=== PATIENT | male | born 1970 | race Caucasian/White ===

== ENCOUNTER 2022-06-26 17:06 | Emergency (ER) | payer MEDICAID, SELFPAY ==
[2022-06-26 17:07] VITALS: BP 139/97; PULSE 67; RESP 16; TEMP 36.6; O2SAT 98; BMI 29.9
--- NOTE | 2022-06-26 18:38 | EKG12_ITS ---
Test Reason : DYSRHYTHMIA Blood Pressure : / mmHG Vent. Rate : 056 BPM Atrial Rate : 056 BPM P-R Int : 106 ms QRS Dur : 092 ms QT Int : 430 ms P-R-T Axes : 048 032 035 degrees QTc Int : 414 ms Sinus bradycardia with short [place] Otherwise normal ECG Confirmed by VICTORINA GRAFF, [facility] ([id number]), acquisition editor CHRISTEL HORVATH ([id number]) on 06/27/2022 1:40:33 PM Referred By: TANYA Confirmed By:RANDY PRAJAPATI MD
--- NOTE | 2022-06-26 18:43 | EDS_ITS ---
HPI History of Present Illness Chief Complaint: General Illness Informant: patient and spouse/S.O. Onset/Context/Timing Onset: Weeks Narrative Narrative: Patient present secondary to just not feeling well. Patient has been ill for the last several months. He was diagnosed with rheumatoid arthritis. He states that a recent urgent care visit he was tested for hepatitis B and was notified last week that he tested positive. He moved from his prior home in [facility] to the [facility] [place] because of better medical care. He does not have a physician in this area. He reportedly was at [facility] emergency room over the weekend. He was told that his CAT scan showed an enlarged stomach and liver, but no other acute findings. He presents the emergency room today just because he does not feel well in general. He did start taking prednisone twice daily about a week ago and that was prescribed from an urgent care. [facility] Medical History Anxiety Hepatitis B Rheumatoid arthritis Home Medications oxycodone 5 mg tablet 5 mg PO Q6H PRN pain 3 days #10 tabs 06/26/22 [Rx Last Taken Unknown] prednisone 20 mg tablet 20 mg PO BID 06/26/22 [History Last Taken Unknown] Allergy/AdvReac Type Severity Reaction Status Date / Time No Known Allergies Allergy Verified 06/26/22 17:09 Surgical History H/O hernia repair H/O lithotripsy Social History Smoking Status: Current every day smoker tobacco type: cigarettes ROS ROS ED Constitutional Constitutional ED: Denies chills or fever(s) Eyes Eyes: Denies change in vision or discharge from eye(s) ENT ENT ED: Denies discharge from eye(s), rhinorrhea or sore throat Cardiovascular Cardiovascular: Reports chest pain; Denies palpitations Respiratory/Chest Respiratory/Chest: Denies cough or dyspnea Gastrointestinal Gastrointestinal: Reports abdominal pain; Denies nausea or vomiting Genitourinary Genitourinary ED: Denies dysuria Musculoskeletal Musculoskeletal: Reports myalgias; Denies back pain or extremity pain Integumentary Denies Abrasions or rash Neurologic Neurologic: Reports weakness; Denies headache(s) Psychiatric Psychiatric: Denies anxiety or depression Allergic/Immunologic Allergic/Immunologic ED: Denies lip swelling or urticaria EXAM Physical Exam Const Vital Signs: 06/26/22 17:07 06/26/22 19:07 06/26/22 20:11 Temperature 97.8 F Temperature Source Temporal Pulse Rate 67 53 L 49 L Respiratory Rate 16 12 11 L Blood Pressure 139/97 H 126/88 H 120/71 Blood Pressure Mean 111 100 87 Pulse Ox 98 97 98 Oxygen Delivery Method Room Air Room Air Room Air Positive well nourished and well developed General Appearance ED: well developed HEENT Reports normocephalic and head/scalp atraumatic Eyes PERRL and EOMs intact bilaterally Neck supple Chest Wall inspection of chest normal and palpation of chest normal Resp normal respiratory effort and clear to auscultation bilaterally Cardio regular rate and regular rhythm GI GI Narrative: Mild abdominal tenderness diffusely. No guarding or rebound. Hypoactive but present bowel sounds noted. Palpation: soft Back/Spine no CVA tenderness Extremity normal to inspection Neuro oriented x3 and no sensory deficits noted Sensorium / Orientation: alert Motor Exam: strength 5/5 throughout Psych mental status grossly normal Skin no rashes or lesions noted MDM MDM MDM Narrative Medical decision making narrative: Patient given IV fluids and Toradol. Lab work obtained. I attempted to review the CT scan from [facility], however it is not available on [employer]. Lab Data Attestation: I reviewed the patient's lab results. Labs: Laboratory Results - last 24 hr 06/26/22 06/26/22 06/26/22 18:50 18:50 18:50 WBC 21.6 H RBC 5.53 Hgb 14.1 Hct 44.0 MCV 79.6 L MCH 25.5 L MCHC 32.0 RDW Std Deviation 53.1 H RDW Coeff of Becca 19.1 H Plt Count 370 MPV 9.2 Neut % (Auto) Not Reportable Absolute Neuts (auto) 18.8 H Absolute Lymphs (auto) 1.95 Total Counted 100 Neutrophils % (Manual) 83 H Band Neutrophils % 2 Lymphocytes % (Manual) 9 L Monocytes % (Manual) 4 Metamyelocytes % 1 Myelocytes % 1 H Diff Path Review May foll Platelet Estimate ADEQUATE RBC Morphology NORM C+C PT 12.9 INR 1.0 APTT 20.5 L Sodium 137 Potassium 4.1 Chloride 105 Carbon Dioxide 26.0 Anion Gap 6 BUN 18 Creatinine 0.94 Estim Creat Clear Calc 101.25 Est GFR (MDRD) Af Amer 110 Est GFR (MDRD) Non-Af 91 BUN/Creatinine Ratio 19.2 Glucose 158 H Calcium 9.4 Total Bilirubin 0.50 Direct Bilirubin 0.16 AST 7 L ALT 17 Alkaline Phosphatase 59 Total Protein 7.0 Albumin 3.3 Globulin 3.7 Lipase 108 Urine Color Urine Clarity Urine pH Ur Specific [place] Urine Protein Urine Glucose (UA) Urine Ketones Urine Occult Blood Urine Nitrite Urine Bilirubin Urine Urobilinogen Ur Leukocyte Esterase Urine RBC Urine WBC Ur Squamous Epith Cells Urine Bacteria Urine Mucus 06/26/22 19:10 WBC RBC Hgb Hct MCV MCH MCHC RDW Std Deviation RDW Coeff of Becca Plt Count MPV Neut % (Auto) Absolute Neuts (auto) Absolute Lymphs (auto) Total Counted Neutrophils % (Manual) Band Neutrophils % Lymphocytes % (Manual) Monocytes % (Manual) Metamyelocytes % Myelocytes % Diff Path Review Platelet Estimate RBC Morphology PT INR APTT Sodium Potassium Chloride Carbon Dioxide Anion Gap BUN Creatinine Estim Creat Clear Calc Est GFR (MDRD) Af Amer Est GFR (MDRD) Non-Af BUN/Creatinine Ratio Glucose Calcium Total Bilirubin Direct Bilirubin AST ALT Alkaline Phosphatase Total Protein Albumin Globulin Lipase Urine Color Yellow Urine Clarity Clear Urine pH 8.0 Ur Specific [place] 1.015 Urine Protein Negative Urine Glucose (UA) Normal Urine Ketones Negative Urine Occult Blood Negative Urine Nitrite Negative Urine Bilirubin Negative Urine Urobilinogen Normal Ur Leukocyte Esterase Negative Urine RBC 0 SEEN Urine WBC 0 SEEN Ur Squamous Epith Cells 0 SEEN Urine Bacteria 0 SEEN Urine Mucus 0 SEEN Treatment and Re-Evaluation Narrative: CBC was elevated white count at 21.6 with 83% neutrophils. I do feel this is likely secondary to the prednisone that he was recently started on. Coags are unremarkable. Chemistry studies are normal. Glucose is 158. LFTs are normal. Urinalysis reveals no acute abnormalities. On repeat evaluation patient does feel improved after Toradol. Test results are discussed with patient and . He will be referred to local PCP to establish care as well as to rheumatology and GI. I will write him a short course of oxycodone as we are trying to avoid Tylenol or any drugs that may cause more liver problems. Return instructions given. Discharge Plan Triage Chief Complaint: General Illness ED Provider: Aye Mabry Dx/Rx/DC Orders Clinical Impression: Myalgia, Rheumatoid arthritis, Hepatitis B Instructions: ED Hepatitis, Viral (Type B), ED Myalgias, ED Rheumatoid Arthritis Prescriptions: New oxycodone 5 mg tablet 5 mg PO Q6H PRN (Reason: pain) 3 Days Qty: 10 0RF No Action prednisone 20 mg Tablet 20 mg PO BID Rx Instructions: take 3 tablets by mouth for 5 days, then 2 tablets for 10 days Primary Care Provider: Care Physician,No Primary Referrals: Marie Ye MD [Med Staff - Lottery Manager] - As soon as possible Claire Padron MD [Med Staff - Lottery Manager] - As soon as possible Friend,DO Jerry [Med Staff - Active Staff] - As soon as possible Care Physician,No Primary [Primary Care Provider] - Disposition Disposition: Home, Self Care
[2022-06-26 18:58] LABS: Hemoglobin 14.1 g/dL (13.0-16.5); Mean Corpuscular Hgb 25.5 pg (27.0-32.0); Mean Corpuscular Volume 79.6 fL (80-94); Mean Platelet Vol. 9.2 fl (6.2-12.0); POSITIVE COUNT YES; POSITIVE MORPHOLOGY YES; Platelet Count 370 K/mm3 (150-450); RBC Distribution Width CV 19.1 % (11.6-14.6); RBC Distribution Width SD 53.1 fl (35.1-43.9); Red Blood Count 5.53 M/mm3 (4.6-6.2); White Blood Count 21.6 K/mm3 (4.4-11.0)
[2022-06-26 19:04] LABS: Differential Indicated MANUAL DIFF
[2022-06-26 19:07] VITALS: BP 126/88; PULSE 53; RESP 12; O2SAT 97
[2022-06-26] MEDS: Ketorolac 30 MG/ML Syringe IV (19:09)
[2022-06-26] MEDS: 0.9% Normal Saline 1,000 ML 150 ML IV (19:10)
[2022-06-26 19:12] LABS: Partial Thromboplast Time 20.5 Seconds (24.1-36.2); Prothrombin Time (Protime)PT. 12.9 SECONDS (11.7-14.9)
[2022-06-26 19:15] LABS: AST(SGOT) 7 U/L (15-37); Alanine Aminotransfer ALT/SGPT 17 U/L (16-61); Albumin, Serum 3.3 g/dL (3.2-5.0); Alkaline Phosphatase 59 U/L (45-117); Anion Gap 6 (5-15); BUN 18 mg/dL (7-18); BUN/Creat Ratio 19.2 RATIO (10-20); Bilirubin, Direct 0.16 mg/dL (0.00-0.30); Calcium,Total 9.4 mg/dL (8.5-10.1); Chloride 105 mmol/L (98-107); Creatinine, Serum 0.94 mg/dL (0.70-1.30); EST Glomerular Filtration Rate 91 mL/min (>60); Est Glom Filt Rate - Afr Amer 110 mL/min (>60); Estimated Creatinine Clearance 101.25 ml/min; Globulin 3.7 g/dL (2.2-4.2); Glucose 158 mg/dL (74-106); Lipase 108 U/L (73-393); Potassium 4.1 mmol/L (3.5-5.1); Sodium Level 137 mmol/L (136-145)
[2022-06-26 19:18] LABS: Bacteria 0 SEEN /hpf (None Seen); Mucous, Urine 0 SEEN /hpf (<or=2+); Red Blood Cells-Urine 0 SEEN /hpf (0-5); Squamous Epithelial Cells - UA 0 SEEN /hpf (0-5); White Blood Cells 0 SEEN /hpf (0-5)
[2022-06-26 19:19] LABS: Color, Urine Yellow (Yellow); Glucose, Dipstick Normal (Normal); Ketone-Dipstick Negative (Negative); Leukocyte Esterase-Dipstick Negative /ul (Negative); Nitrite-Dipstick Negative (Negative); Occult Blood-Urine Negative /ul (Negative); Protein-Dipstick Negative (Negative); Specific Gravity, Urine 1.015 (1.002-1.030); Urine Bilirubin Dipstick Negative (Negative); Urine Clarity Clear (Clear); Urine Urobilinogen Normal (Normal)
[2022-06-26 19:28] LABS: Metamyelocyte 1 % (0-1); Neutrophil-Band 2 % (0-5); Neutrophil-Segmented 83 % (47-70); Total Cells Counted 100 (MANUAL DIFF)
[2022-06-26 19:29] LABS: Lymphocyte 9 % (19-41); Monocyte 4 % (0-10); Myelocyte 1 % (0-0); Platelet Estimate ADEQUATE (ADEQ); Red Cell Morphology NORM C+C NORMAL (NORM C&C)
[2022-06-26 19:35] LABS: Absolute Lymphocyte Count 1.95 X10^3/uL (0.83-4.51); Absolute Neutrophil Count 18.8 X10^3/uL (2.0-7.7); Lymphocyte # 1.95 X10^3/ul (0.83-4.51); Neutrophil # 18.83 X10^3/uL (2.7-7.7)
[2022-06-26 20:11] VITALS: BP 120/71; PULSE 49; RESP 11; O2SAT 98
[2022-06-28 10:08] LABS: Pathologist Review Reviewed
== END 2022-06-26 21:33 | disposition home or self-care (01) ==
PROVIDERS: Emergency Provider Emergency Medicine; Visit Provider Emergency Medicine
DX: M79.10 Myalgia, unspecified site (principal); M06.9 Rheumatoid arthritis, unspecified; R16.0 Hepatomegaly, not elsewhere classified; B19.10 Unspecified viral hepatitis B without hepatic coma; F17.210 Nicotine dependence, cigarettes, uncomplicated
CPT/HCPCS: 80048; 80076; 81001; 83690; 85025; 85610; 85730; 93005; 99284; J7030; A4216

== ENCOUNTER 2022-07-25 13:14 | Emergency (ER) | payer MEDICAID, SELFPAY ==
[2022-07-25 13:17] VITALS: BP 122/84; PULSE 119; RESP 16; TEMP 36.6; O2SAT 98; BMI 29.9
[2022-07-25 14:34] VITALS: BP 109/69; PULSE 105; RESP 18; O2SAT 98
--- NOTE | 2022-07-25 14:40 | ED.RN ---
Pt. c/o 03/18 chest pain. Chart has not yet been picked up by a Dr. Chest pain RN protocols ordered.
--- NOTE | 2022-07-25 14:53 | CT_ITS ---
ACR Level 3 findings have been noted. An addendum which confirms receipt of the report will follow. HISTORY: Abdominal pain. TECHNIQUE: Helically acquired images were obtained of the abdomen and pelvis after the intravenous administration of 100mL Isovue-370. A radiation dose optimization technique was used for this scan. 441 images. COMPARISON: None. FINDINGS: LOWER CHEST: Trace right pleural effusion with 1.5 cm wedge-shaped peripheral right lower lobe opacity. BOWEL: Bowel including appendix nondilated. No focal inflammatory change observed. PERITONEUM: No significant ascites. LIVER: No enhancing mass. Fatty infiltration, 19 cm in length. GALLBLADDER/BILIARY TREE: Gallbladder present. KIDNEYS: Subcentimeter bilateral cysts. Multiple left renal calculi measuring up to 8 mm. No hydronephrosis. SPLEEN/PANCREAS/ADRENAL GLANDS: Unremarkable. VESSELS: No abdominal aortic aneurysm. Mild aortoiliac calcified plaque. Mild stranding around the right femoral veins with a small linear nonocclusive filling defect in the visualized portion of the superficial femoral vein. Mild stranding around the left femoral vessels. PELVIC ORGANS: Small prostate calcifications. Enlarged external iliac lymph nodes measuring up to 1.2 x 2.2 cm on the left and 1.2 x 2.2 cm on the right. ABDOMINAL WALL: Small fat-containing ventral and left inguinal hernias. BONES: Mild degenerative change. CT/Abdomen/Pelvis W IV Cont ONLY IMPRESSION: Incompletely imaged nonocclusive deep venous thrombosis of the right femoral vein with mild stranding surrounding both femoral veins; recommend bilateral venous ultrasound correlation. Mild bilateral external iliac lymphadenopathy, nonspecific. Trace right pleural effusion with focal peripheral opacity in the right lower lobe, concerning for pulmonary infarct or pneumonia. Recommend follow-up to exclude developing pulmonary nodule. Nonobstructing left renal calculi. Subcentimeter bilateral renal cysts. Hepatic steatosis with hepatomegaly. Electronically Signed: Ivania Murillo MD at 15:54 EST ,
[2022-07-25 14:54] VITALS: TEMP 37.5
--- NOTE | 2022-07-25 14:55 | EDS_ITS ---
HPI History of Present Illness Chief Complaint: Chest Pain Detail of Chief Complaint: Diffuse body pain. Chills. Nausea. Informant: patient and family Onset/Context/Timing Onset: Today and Yesterday Context: Gradual Onset Timing: Continuous Current Severity: Moderate Maximum Severity: Moderate Narrative Narrative: 51-year-old male history of anxiety, hepatitis and rheumatoid arthritis. States last night he was not feeling well and shivering. He decelerate what he thought was an irregular heart rate with chest pain and pain radiating up from his legs through his abdomen into his chest. Nauseated but denies vomiting or diarrhea. Decreased appetite. Denies any dysuria. Denies any documented fever but has had chills. Prior similar symptoms: No Recent Illness/Hospitalization: No PFSH PFSH Medical History Anxiety Hepatitis B Hyponatremia Rheumatoid arthritis Allergy/AdvReac Type Severity Reaction Status Date / Time No Known Allergies Allergy Verified 07/25/22 13:20 Family History Mother Cancer ovarian Grandmother Cancer leukemia Rheumatoid arthritis Surgical History H/O elbow surgery H/O hernia repair H/O lithotripsy Social History Smoking Status: Current every day smoker tobacco type: cigarettes alcohol intake: never substance use type: marijuana ROS ROS ED ROS Narrative Chest pain. Abdominal pain. Chills. Review of Systems ROS Unobtainable: Denies due to encephalopathy Constitutional Constitutional ED: Reports chills; Denies fever(s) Eyes Eyes: Denies blurry vision ENT ENT ED: Denies ear pain Cardiovascular Cardiovascular: Reports chest pain and racing heartbeat; Denies palpitations Respiratory/Chest Respiratory/Chest: Denies cough or dyspnea Gastrointestinal Gastrointestinal: Reports abdominal pain and nausea; Denies constipation, diarrh ea, melena or vomiting Genitourinary Genitourinary ED: Denies dysuria or hematuria Musculoskeletal Musculoskeletal: Denies arthralgias Integumentary Denies abscess Neurologic Neurologic: Denies headache(s) Psychiatric Psychiatric: Denies anxiety Endocrine Endocrinology: Denies cold intolerance Hematologic/Lymphatic Hematologic/Lymphatic: Reports none Allergic/Immunologic Allergic/Immunologic ED: Denies mouth swelling or tongue swelling EXAM Physical Exam Narrative Exam Narrative: 51-year-old male anxious. Vital signs are stable afebrile. He does not look septic or toxic. Initial temperature 97.8 he felt warm repeat temperature 99.5 orally. H EENT exam unremarkable. Moist extremities. Neck nontender no ly mphadenopathy. Lungs clear to auscultation bilaterally. Heart tachycardic rate about 110 no murmur. Chest wall nontender. Abdomen soft, nondistended but diffusely tender. No peritoneal signs. No hernia or mass. No obstruction. Moving all 4 extremities. Trace edema both lower extremities. Swelling to bilateral knees. Back nontender. Multiple tattoos. Neurologically he is awake and alert with no focal motor deficits. Const Vital Signs: 07/25/22 13:17 07/25/22 14:34 07/25/22 14:54 Temperature 97.8 F 99.5 F H Temperature Source Temporal Oral Pulse Rate 119 H 105 H Respiratory Rate 16 18 Blood Pressure 122/84 H 109/69 Blood Pressure Mean 96 82 Pulse Ox 98 98 Oxygen Delivery Method Room Air Room Air 07/25/22 14:56 07/25/22 16:45 Temperature Temperature Source Pulse Rate 99 Respiratory Rate Blood Pressure 152/80 H Blood Pressure Mean 104 Pulse Ox 96 Oxygen Delivery Method Room Air Room Air Positive well nourished, well developed and obese; Negative for cachectic, contractures or unkempt General Appearance ED: well developed and NAD; Negative for unkempt, cachectic, contractures, cyanotic or diaphoretic Nutritional Appearance: obese; Negative for cachectic HEENT Reports moist mucous membranes; Denies dry mucous membranes Negative for trauma or tenderness Mouth ED: No dry mucous membranes Mouth: No dry mucous membranes Eyes PERRL and EOMs intact bilaterally General Eye ED: Negative for pale conjunctiva or scleral icterus Neck no lymphadenopathy, supple and no JVD General: Negative for tenderness Lymph Lymphatic: Negative for other Chest Wall inspection of chest normal and palpation of chest normal Chest: Negative for other Resp normal respiratory effort and clear to auscultation bilaterally Effort and Inspection: Negative for retractions Auscultation: Negative for rales, rhonchi or wheezes Cardio regular rhythm, S1 normal heart sound, S2 normal heart sound and no murmurs; Negative for regular rate Rate: tachycardic Rhythm: Negative for abnormal rhythm GI normal to inspection, nondistended, normoactive bowel sounds, non-distended and no masses; Negative for non-tender Inspection: Negative for abdominal distention Auscultation: normoactive bowel sounds Palpation: soft and tender; Negative for guarding, splenomegaly, mass or rebound tenderness present Back/Spine no CVA tenderness General Back: Negative for CVA tenderness Cervical Spine: Negative for cervical spine tenderness Thoracic Spine / Upper Back: Negative for thoracic spinal tenderness Lumbar Spine / Lower Back: Negative for lumbar spinal tenderness Extremity Negative for normal to inspection Extremity Narrative: Trace bilateral lower extremity edema. Bilateral knee swelling. General Extremety ED: Yes edema and tenderness General Extremity: edema Neuro oriented x3 and CN's II-XII intact bilaterally Sensorium / Orientation: alert; Negative for orientation impaired, lethargic or stuporous Motor Exam: strength 5/5 throughout Psych mental status grossly normal Appearance: Negative for unkempt Attitude: No agitated Mood & Affect: anxious; Negative for depressed or tearful Skin no rashes or lesions noted and no wounds Lesions: No lesion noted Rashes: No rashes noted Trauma: Negative for abrasion Wounds: Negative for wounds noted MDM MDM MDM Narrative Medical decision making narrative: 51-year-old with multiple complaints including diffuse body pain, abdominal pain and chest pain. Initially I do not think this is going to be cardiac. He reportedly has a history of rheumatoid arthritis. He does have trace edema both lower extremities and joint swelling. He also has abdominal pain that is nonlocalizing. Nurses put in protocol labs. Again extensive work-up including a CT of his abdomen and pelvis. Zofran for nausea. Repeat exam at 6:16 PM patient doing well. Resting comfortably. He and his had a long discussion. They just moved there in the last 2 weeks. He is having trouble getting set up with primary care physicians. He has a appointment to be seen at the [facility] as a new patient but that is not until January. He understands there is nothing to admit him to the hospital for. He will be given a dose of IV Toradol for discomfort. I will refer him to a different local primary care physicians to get set up hopefully in and see a public health staff nurse. They have attempted to see the public health staff nurse here in town they do not take his specific insurance. Lab Data Attestation: I reviewed the patient's lab results. Lab results narrative: CBC has an elevated white count of 14.6. H&H 12.6 and 39.1. Platelets are elevated at 789,000. Electrolytes show a gap of 13 and a normal BUN and creatinine. Glucose 134. Liver enzymes are normal. Troponin is normal. Lipase is normal at 75. CT of the abdomen pelvis showed a questionable femoral DVT. However on bilateral, venous studies of the lower extremity showed no DVT. Clinically this does not appear to be a DVT. CTA of the chest showed a very small pleural effusion. Otherwise unremarkable. No PE. Labs are unremarkable no significant change from prior. He has been reportedly on prednisone recently and that could be the elevation of his white count. There is no clinical signs of infection on any of his studies. Labs: Laboratory Results - last 24 hr 07/25/22 07/25/22 07/25/22 14:49 14:49 14:49 WBC 14.6 H RBC 4.98 Hgb 12.6 L Hct 39.1 L MCV 78.5 L MCH 25.3 L MCHC 32.2 RDW Std Deviation 46.8 H RDW Coeff of Becca 16.3 H Plt Count 789 H* MPV 8.8 Immature Gran % (Auto) 1.600 H Neut % (Auto) 80.1 H Lymph % (Auto) 8.6 L [place] % (Auto) 9.2 Eos % (Auto) 0.2 Baso % (Auto) 0.3 Absolute Neuts (auto) 11.7 H Absolute Lymphs (auto) 1.26 Nucleated RBC % 0 Diff Path Review May foll Sodium 133 L Potassium 3.9 Chloride 96 L Carbon Dioxide 27.0 Anion Gap 10 BUN 11 Creatinine 0.78 Estim Creat Clear Calc 122.01 Est GFR (MDRD) Af Amer 136 Est GFR (MDRD) Non-Af 113 BUN/Creatinine Ratio 14.2 Glucose 134 H Calcium 9.3 Total Bilirubin 0.50 Direct Bilirubin 0.23 AST 15 ALT 13 L Alkaline Phosphatase 50 Troponin I High Sens 4 Total Protein 6.8 Albumin 2.4 L Globulin 4.4 H Lipase 07/25/22 14:49 WBC RBC Hgb Hct MCV MCH MCHC RDW Std Deviation RDW Coeff of Becca Plt Count MPV Immature Gran % (Auto) Neut % (Auto) Lymph % (Auto) [place] % (Auto) Eos % (Auto) Baso % (Auto) Absolute Neuts (auto) Absolute Lymphs (auto) Nucleated RBC % Diff Path Review Sodium Potassium Chloride Carbon Dioxide Anion Gap BUN Creatinine Estim Creat Clear Calc Est GFR (MDRD) Af Amer Est GFR (MDRD) Non-Af BUN/Creatinine Ratio Glucose Calcium Total Bilirubin Direct Bilirubin AST ALT Alkaline Phosphatase Troponin I High Sens Total Protein Albumin Globulin Lipase 75 Radiography Chest X-Ray - ED: 1 View, Read by ED Physician, Read by Radiologist, Heart, Lungs, Mediastinum, Bony Structures, No Acute Disease and Chronic Changes Diagnostic Testing: Clinical Impression(s) from Imaging Studies Abdomen/Pelvis CT 07/25/22 14:53 IMPRESSION: Incompletely imaged nonocclusive deep venous thrombosis of the right femoral vein with mild stranding surrounding both femoral veins; recommend bilateral venous ultrasound correlation. Mild bilateral external iliac lymphadenopathy, nonspecific. Trace right pleural effusion with focal peripheral opacity in the right lower lobe, concerning for pulmonary infarct or pneumonia. Recommend follow-up to exclude developing pulmonary nodule. Nonobstructing left renal calculi. Subcentimeter bilateral renal cysts. Hepatic steatosis with hepatomegaly. Electronically Signed: Ivania Murillo MD at 15:54 EST , ADDENDUM: 07/25/22 1608 IMPRESSION: Incompletely imaged nonocclusive deep venous thrombosis of the right femoral vein with mild stranding surrounding both femoral veins; recommend bilateral venous ultrasound correlation. Mild bilateral external iliac lymphadenopathy, nonspecific. Trace right pleural effusion with focal peripheral opacity in the right lower lobe, concerning for pulmonary infarct or pneumonia. Recommend follow-up to exclude developing pulmonary nodule. Nonobstructing left renal calculi. Subcentimeter bilateral renal cysts. Hepatic steatosis with hepatomegaly. N.B. : Hernan Acuña MD, confirmed on 07/25/2022 16:01:10 (ET) that the healthcare facility has received the radiology report. Electronically Signed: Ivania Murillo MD at 15:54 EST , Chest X-Ray 07/25/22 15:30 IMPRESSION: No acute cardiopulmonary process identified. Electronically Signed: Ivania Murillo MD at 15:41 EST , Chest CTA 07/25/22 16:16 IMPRESSION: Tiny right pleural effusion and probable atelectasis in the right lower lobe. No acute infiltration. No evidence for pulmonary embolus Electronically Signed: David West MD at 17:21 EST , Venous Doppler Study 07/25/22 16:17 Interpretation Summary Deep veins of the bilateral lower extremities are patent and compressible segmentally. There is no evidence of bilateral lower extremity deep vein thrombosis. The bilateral great saphenous veins appear patent and compressible segmentally. Ordering Physician: Roldan Jacobs Referring Physician: Reva Cobb Performed By: Lucy Francis RVT Chest x-ray, portable, single view shows no acute abnormality. Normal cardiac silhouette. No infiltrate. No pneumonia. Interpreted myself and radiologist. Rhythm Strip Rhythm Strip: Sinus Tach Rate: 101 Ectopy: None EKG Initial EKG: Attestation: I personally reviewed and interpreted this EKG as follows: Interpretation: Sinus Tachycardia Comments: Sinus tachycardia rate of 101 no acute signs of VA or ischemia. No significant change from prior EKG from June. Discharge Plan Triage Chief Complaint: Chest Pain Other Complaint: Other, Pain/Inj ED Provider: Roldan Jacobs Dx/Rx/DC Orders Instructions: Abdominal Pain, Knee Pain, ED Chest Pain, Uncertain Cause Primary Care Provider: Reva Cobb NP Referrals: Chapin Miller MD [Med Staff - Active Staff] - As soon as possible Mart Blanco MD [Med Staff - Tailings Worker] - As soon as possible Reva Cobb NP, PRODUCTION PACKAGER-[employer] [Primary Care Provider] - Activity Restrictions/Additional Instructions: Call and follow-up with a local primary care physician try different offices they should be able to get you in sooner than January. Also follow-up with the [facility] to see if they can move up your appointment. There are public health staff nurse both in [place] in [place] try to call their office to see if you get in for an evaluation for rheumatoid arthritis versus other causes of your joint pain. Disposition Disposition: Home, Self Care
[2022-07-25 15:05] LABS: Lipase 75 U/L (73-393)
[2022-07-25] MEDS: Ondansetron 4 MG/2 ML Vial IV (15:05)
[2022-07-25 15:12] LABS: Anion Gap 10 (5-15); BUN 11 mg/dL (7-18); BUN/Creat Ratio 14.2 RATIO (10-20); Calcium,Total 9.3 mg/dL (8.5-10.1); Chloride 96 mmol/L (98-107); Creatinine, Serum 0.78 mg/dL (0.70-1.30); EST Glomerular Filtration Rate 113 mL/min (>60); Est Glom Filt Rate - Afr Amer 136 mL/min (>60); Estimated Creatinine Clearance 122.01 ml/min; Glucose 134 mg/dL (74-106); Potassium 3.9 mmol/L (3.5-5.1); Sodium Level 133 mmol/L (136-145); Troponin-I HS 4 pg/mL (3.0-78.0)
[2022-07-25 15:13] LABS: Absolute Lymphocyte Count 1.26 X10^3/uL (0.83-4.51); Absolute Neutrophil Count 11.7 X10^3/uL (2.0-7.7); Basophil# 0.05 X10^3/uL; Basophil% 0.3 % (0-1); Eosinophil# 0.03 X10^3/uL; Eosinophils% 0.2 % (0-5); Hematocrit 39.1 % (40-54); Hemoglobin 12.6 g/dL (13.0-16.5); Lymphocyte # 1.26 X10^3/ul (0.83-4.51); Lymphocyte % 8.6 % (19-41); Mean Corp Hgb Conc 32.2 g/dL (32-36); Mean Corpuscular Hgb 25.3 pg (27.0-32.0); Mean Corpuscular Volume 78.5 fL (80-94); Mean Platelet Vol. 8.8 fl (6.2-12.0); Monocyte# 1.34 X10^3/uL; Monocyte% 9.2 % (0-10); NRBC Flagged by Analyzer 0 % (0-5); Neutrophil # 11.71 X10^3/uL (2.7-7.7); Neutrophil % 80.1 % (47-70); POSITIVE COUNT YES; RBC Distribution Width CV 16.3 % (11.6-14.6); RBC Distribution Width SD 46.8 fl (35.1-43.9); Red Blood Count 4.98 M/mm3 (4.6-6.2); White Blood Count 14.6 K/mm3 (4.4-11.0)
[2022-07-25 15:14] LABS: AST(SGOT) 15 U/L (15-37); Alanine Aminotransfer ALT/SGPT 13 U/L (16-61); Albumin, Serum 2.4 g/dL (3.2-5.0); Alkaline Phosphatase 50 U/L (45-117); Bilirubin, Direct 0.23 mg/dL (0.00-0.30); Globulin 4.4 g/dL (2.2-4.2); Protein, Total 6.8 g/dL (6.4-8.2)
[2022-07-25 15:16] LABS: Platelet Count 789 K/mm3 (150-450)
--- NOTE | 2022-07-25 15:16 | ED.RN ---
LAB CALLED [facility] [address]. DR GILES
--- NOTE | 2022-07-25 15:30 | RAD_ITS ---
HISTORY: chest pain. TECHNIQUE: XR Chest 1 View. COMPARISON: None. FINDINGS: CARDIOMEDIASTINAL BORDERS: Cardiac silhouette within normal limits in size. Mediastinal contour unremarkable. LUNGS: Radiographically clear. PLEURA: No pleural effusion or pneumothorax seen. OSSEOUS STRUCTURES: Unremarkable. RAD/Chest 1 View (Portable) IMPRESSION: No acute cardiopulmonary process identified. Electronically Signed: Ivania Murillo MD at 15:41 EST ,
--- NOTE | 2022-07-25 16:16 | CT_ITS ---
STUDY: CTA CHEST REASON FOR EXAM: Male, 51 years old. Chest pain. Question PE RADIATION DOSAGE (If Supplied By Facility): CTDIvol = ( 14.52 ) mGy, DLP = ( 449.47 ) mGycm TECHNIQUE: The examination was performed with the intravenous administration of IV 100mL Isovue-370. Post-processing of the angiographic images was performed, with multiplanar reformation and 3D reconstruction. Individualized dose optimization techniques were used for this CT. COMPARISON: None. FINDINGS: Normal enhancement of the main pulmonary artery and right and left pulmonary arteries. Normal enhancement of the bilateral peripheral pulmonary arteries. There is no demonstrated pulmonary embolism. Normal thoracic aorta and visualized great vessels. There is no demonstrated aortic dissection. Normal heart and pericardium. Normal mediastinum. Normal hilar regions. Normal visualized trachea and bronchi. The lungs are well expanded. There is a focal juxtapleural nodular airspace opacity at the right lung base possibly representing focal round atelectasis. Tiny right pleural effusion. Normal chest wall structures. Normal osseous structures. Normal visualized upper abdomen. CT/CTA Chest W/WO Contrast IMPRESSION: Tiny right pleural effusion and probable atelectasis in the right lower lobe. No acute infiltration. No evidence for pulmonary embolus Electronically Signed: David West MD at 17:21 EST ,
--- NOTE | 2022-07-25 16:17 | VDLE_ITS ---
Reason For Study: Swelling, RIGHT LEFT GSV is normal. GSV is normal. CFV is compressible, spontaneous, phasic, CFV is compressible, spontaneous, phasic, competent and demonstrates normal competent, and demonstrates normal augmentation. augmentation. FV is compressible, spontaneous, phasic, FV is compressible, spontaneous, phasic, competent and demonstrates normal competent and demonstrates normal augmentation. augmentation. POP V is compressible, spontaneous, phasic, POP V is compressible, spontaneous, phasic, competent and demonstrates normal competent and demonstrates normal augmentation. augmentation. T/P Trunk is compressible. T/P Trunk is compressible. PTV is compressible. PTV is compressible. RT PerV is compressible. LT PerV is compressible. CIV is compressible with normal color flow CIV is compressible with normal color flow within. within. Procedure This is a venous duplex using B-mode, color flow and spectral Doppler. Exam performed portable in ED. A preliminary report was called and/or faxed to Dr. Jacobs. VL/Venous Duplex US - Will Extrem Interpretation Summary Deep veins of the bilateral lower extremities are patent and compressible segme ntally. There is no evidence of bilateral lower extremity deep vein thrombosis. The bilateral great saphenous veins appear patent and compressible segmentally. Ordering Physician: Roldan Jacobs Referring Physician: Reva Cobb Performed By: Lucy Francis RVT
[2022-07-25] MEDS: morphine 8 MG/ML Syringe 6 MG IV (16:28)
[2022-07-25] MEDS: 0.9% Normal Saline 1,000 ML 999 ML IV (16:28)
--- NOTE | 2022-07-25 16:32 | ED.RN ---
this rn accidently pulled another zofran. wasted after opened. second dose not given to pt
[2022-07-25 16:45] VITALS: BP 152/80; PULSE 99; O2SAT 96
--- NOTE | 2022-07-25 17:54 | CM.ED ---
SW Note Referral Source: Case Find Referral Reason: No PCP SW met with patient and his . Patient and are moving to [place] for medical care from [facility]. Patient and said that they are between houses and their children are with relatives. Patient's inquired about staff to assist with medical application. Patient has [employer] insurance so patient currently has insurance. SW provided patient with financial resource packet, [employer] resource list and [employer] pamphlet for housing information. No other issues or concerns voiced. SW remains available if needs arise. Eliane HICKS
[2022-07-25 18:31] VITALS: PULSE 97; RESP 15; O2SAT 97
[2022-07-25] MEDS: Ketorolac 30 MG/ML Syringe IV (18:44)
[2022-07-26 12:41] LABS: Pathologist Review Reviewed
== END 2022-07-25 18:44 | disposition home or self-care (01) ==
PROVIDERS: Emergency Provider Emergency Medicine; PCP Nurse Practitioner Family; Visit Provider Emergency Medicine
DX: R07.9 Chest pain, unspecified (principal); F12.90 Cannabis use, unspecified, uncomplicated; R11.0 Nausea; R68.83 Chills (without fever); R10.9 Unspecified abdominal pain
CPT/HCPCS: 71045; 71275; 74177; 80048; 80076; 83690; 84484; 85025; 93005; 93970; 96361; 96374; 96375; 99285; J7030; Q9967; A4216; J2405

== ENCOUNTER 2022-10-02 19:41 | Emergency (ER) | payer SELFPAY ==
[2022-10-02 19:41] VITALS: BP 135/79; PULSE 90; RESP 16; TEMP 36.7; O2SAT 100
--- NOTE | 2022-10-02 20:08 | EKG12_ITS ---
Test Reason : DYSRHYTHMIA Blood Pressure : / mmHG Vent. Rate : 086 BPM Atrial Rate : 086 BPM P-R Int : 102 ms QRS Dur : 096 ms QT Int : 374 ms P-R-T Axes : 038 041 039 degrees QTc Int : 447 ms Sinus rhythm with short AK Otherwise normal ECG Confirmed by SETH GRAFF, BARRETT ([id number]), story editor CHRISTEL HORVATH ([id number]) on 10/04/2022 8:17:11 AM Referred By: GIAN Confirmed By:BARRETT ANN MD
--- NOTE | 2022-10-02 20:09 | EX.ED.DYSGE1 ---
HPI History of Present Illness Chief Complaint: General Illness Informant: patient Narrative Narrative: Patient presents with pain all over. Patient states that he was diagnosed with rheumatoid arthritis back in March. He had been somewhat bedridden for about a month. He has evidently been seeing many physicians. He has aches in his joints. He states they spread into his chest. His stomach has been bothering him. It sounds like this has been going on the entire time. He is eating and drinking. But because he overall just does not feel well he has lost about 30 pounds in the last 8 or so months. This is not an acute loss. There is nothing new or different today that I can get from him or his . He just states he is hurts all over. They just got his first dose of Humira about 8 days ago. They were told that is going to take multiple doses and a lot of time for this to help him. But there is still concerned that he was not better yet. No fevers. No coughing. No urinary symptoms. PFSH PFSH Medical History Anxiety Hepatitis B Hyponatremia Rheumatoid arthritis Home Medications hydrocodone-acetaminophen 5-325mg 5mg-325mg 1 tab PO Q6H PRN PRN Pain 3 days #12 TABLETS 10/02/22 [Rx Last Taken Unknown] Allergy/AdvReac Type Severity Reaction Status Date / Time No Known Allergies Allergy Verified 10/02/22 19:44 Family History Mother Cancer ovarian Grandmother Cancer leukemia Rheumatoid arthritis Surgical History H/O elbow surgery H/O hernia repair H/O lithotripsy Social History Smoking Status: Current every day smoker tobacco type: cigarettes alcohol intake: never substance use type: marijuana ROS ROS ED Constitutional Constitutional ED: Denies chills, fever(s) or subjective Eyes Eyes: Denies blurry vision, change in vision or diplopia ENT ENT ED: Denies rhinorrhea Cardiovascular Cardiovascular: Reports chest pain and other Details: Patient's chest pain is really radiating in from his shoulders. Both shoulders in fact all of his joints hurt. ; Denies palpitations or racing heartbeat Respiratory/Chest Respiratory/Chest: Denies cough or dyspnea Gastrointestinal Gastrointestinal: Reports abdominal pain and other Details: Nonspecific abdominal pain but that is been going on for months. Yet he is eating drinking and moving his bowels normally. ; Denies diarrhea, nausea or vomiting Genitourinary Genitourinary ED: Denies dysuria Musculoskeletal Musculoskeletal: Reports arthralgias Integumentary Denies rash Neurologic Neurologic: Denies headache(s) Hematologic/Lymphatic Hematologic/Lymphatic: Denies easy bleeding, easy bruising or lymphadenopathy Allergic/Immunologic Allergic/Immunologic ED: Denies urticaria EXAM Physical Exam Narrative Exam Narrative: CONSTITUTIONAL: Patient is nontoxic in appearance. The patient looks comfortable. He carries on normal conversation. HEENT: No notable trauma. Mucous membranes moist. No sinus tenderness. No indication of pain with swallowing. No thrush. EYES: No conjunctival injection. No proptosis. CARDIOVASCULAR: Regular rate. Regular rhythm. No notable murmur. No JVD. He does have reproducible chest wall tenderness. But no skin changes. RESPIRATORY: No respiratory distress. Breathing is unlabored. No wheezes. No rhonchi. No rales. No pain with a deep breath. GASTROINTESTINAL: Not distended. Bowel sounds are normal. No tenderness. No guarding. No rebound. No palpable mass. No bruit. Overall abdomen is actually quite benign on exam. GENITOURINARY: No tenderness over the bladder. No CVA tenderness. MUSCULOSKELETAL: Atraumatic. He does have some bilateral lower extremity peripheral edema but evidently this is chronic and not new. No cord. No tenderness along the deep venous system. No asymmetry. There is no single joint that seems to be specifically inflamed. None are red or warm. NEUROLOGICAL: Patient is alert and appropriate. No focal deficit noted. SKIN: No noted rashes. No diaphoresis. PSYCHIATRIC: Patient is calm. Mood is appropriate. Const Vital Signs: 10/02/22 19:41 10/02/22 20:25 Temperature 98.1 F Temperature Source Temporal Pulse Rate 90 Respiratory Rate 16 Respiratory Effort Normal Respiratory Pattern Normal Blood Pressure 135/79 H Blood Pressure Mean 97 Pulse Ox 100 Oxygen Delivery Method Room Air MDM MDM MDM Narrative Medical decision making narrative: Patient's CBC does show mild elevation white count low hemoglobin and high platelets. This is similar to recent. Electrolytes show minimal low sodium at 135. Lliver function tests are overall normal. Troponin is negative. lipase is negative. I checked the patient. He is appreciative of the care. I explained I can get him home on some pain meds. He has 1 prescription when I review his online prescribing report. I explained that we in the emergency department cannot manage his long-term pain from rheumatoid arthritis. This will have to be done through his physicians are likely through pain management as this is likely to be a long-term issue. But I can give him a little break of his symptoms. Lab Data Attestation: I reviewed the patient's lab results. Labs: Laboratory Results - last 24 hr 10/02/22 10/02/22 20:19 20:19 WBC 11.6 H RBC 4.34 L Hgb 10.0 L Hct 32.0 L MCV 73.7 L MCH 23.0 L MCHC 31.3 L RDW Std Deviation 43.0 RDW Coeff of Becca 16.1 H Plt Count 634 H MPV 8.7 Immature Gran % (Auto) 1.600 H Neut % (Auto) 65.2 Lymph % (Auto) 21.0 Elliott % (Auto) 7.6 Eos % (Auto) 4.0 Baso % (Auto) 0.6 Absolute Neuts (auto) 7.6 Absolute Lymphs (auto) 2.43 Nucleated RBC % 0 Sodium 135 L Potassium 3.7 Chloride 104 Carbon Dioxide 26.0 Anion Gap 5 BUN 14 Creatinine 0.80 Estim Creat Clear Calc 117.66 Est GFR (MDRD) Af Amer 132 Est GFR (MDRD) Non-Af 109 BUN/Creatinine Ratio 17.5 Glucose 99 Calcium 9.4 Total Bilirubin 0.20 AST 7 L ALT 8 L Alkaline Phosphatase 51 Troponin I High Sens 3 Total Protein 7.0 Albumin 2.2 L Globulin 4.8 H Albumin/Globulin Ratio 0.5 L Lipase 24 EKG Initial EKG: Comments: My independent interpretation the patient's EKG done for pain in the region of the chest shows normal sinus rhythm with overall rate of 86. No ectopy. Mild irregular baseline but no acute ST elevation or depression. CA interval, QRS duration and QTc are normal. Discharge Plan Triage Chief Complaint: General Illness ED Provider: Sean Avery Dx/Rx/DC Orders Clinical Impression: Rheumatoid arthritis, Diffuse pain Instructions: ED Rheumatoid Arthritis Prescriptions: New hydrocodone-acetaminophen [hydrocodone-acetaminophen] 5-325 mg tablet 1 tab PO Q6H PRN PRN (Reason: Pain) 3 Days Qty: 12 0RF Primary Care Provider: Care Physician,No Primary Referrals: Reva Cobb NP, [facility] [Non-Staff] - As soon as possible Disposition Disposition: Home, Self Care
[2022-10-02] MEDS: Morphine 4 MG/ML Syringe IV ×2 (20:17→22:58)
[2022-10-02 20:23] VITALS: BMI 28.2
[2022-10-02 20:26] LABS: Absolute Lymphocyte Count 2.43 X10^3/uL (0.83-4.51); Absolute Neutrophil Count 7.6 X10^3/uL (2.0-7.7); Basophil# 0.07 X10^3/uL; Basophil% 0.6 % (0-1); Eosinophil# 0.46 X10^3/uL; Lymphocyte # 2.43 X10^3/ul (0.83-4.51); Mean Corp Hgb Conc 31.3 g/dL (32-36); Mean Corpuscular Volume 73.7 fL (80-94); Mean Platelet Vol. 8.7 fl (6.2-12.0); Monocyte# 0.88 X10^3/uL; Monocyte% 7.6 % (0-10); NRBC Flagged by Analyzer 0 % (0-5); Neutrophil # 7.55 X10^3/uL (2.7-7.7); Neutrophil % 65.2 % (47-70); Platelet Count 634 K/mm3 (150-450); RBC Distribution Width CV 16.1 % (11.6-14.6); Red Blood Count 4.34 M/mm3 (4.6-6.2); White Blood Count 11.6 K/mm3 (4.4-11.0)
[2022-10-02 20:46] LABS: ALB/GLOB Ratio 0.5 RATIO (0.9-2.4); AST(SGOT) 7 U/L (15-37); Alanine Aminotransfer ALT/SGPT 8 U/L (16-61); Albumin, Serum 2.2 g/dL (3.2-5.0); Alkaline Phosphatase 51 U/L (45-117); Anion Gap 5 (5-15); BUN 14 mg/dL (7-18); BUN/Creat Ratio 17.5 RATIO (10-20); Calcium,Total 9.4 mg/dL (8.5-10.1); Chloride 104 mmol/L (98-107); EST Glomerular Filtration Rate 109 mL/min (>60); Est Glom Filt Rate - Afr Amer 132 mL/min (>60); Estimated Creatinine Clearance 117.66 ml/min; Globulin 4.8 g/dL (2.2-4.2); Glucose 99 mg/dL (74-106); Lipase 24 U/L (13-75); Potassium 3.7 mmol/L (3.5-5.1); Sodium Level 135 mmol/L (136-145); Troponin-I HS 3 pg/mL (3.0-78.0)
[2022-10-02 22:55] VITALS: BP 113/66; PULSE 87; RESP 18; O2SAT 97
== END 2022-10-02 23:05 | disposition home or self-care (01) ==
PROVIDERS: Emergency Provider Emergency Medicine; Visit Provider Emergency Medicine
DX: M06.9 Rheumatoid arthritis, unspecified (principal); B18.1 Chronic viral hepatitis B without delta-agent; R52 Pain, unspecified; F17.210 Nicotine dependence, cigarettes, uncomplicated
CPT/HCPCS: 80053; 83690; 84484; 85025; 93005; 96361; 96374; 96376; 99282; J7040; A4216

== ENCOUNTER 2022-10-18 17:29 | Emergency (ER) | payer MEDICAID, SELFPAY ==
[2022-10-18 17:30] VITALS: BP 134/95; PULSE 89; RESP 16; TEMP 36.4; O2SAT 100; BMI 28.3
--- NOTE | 2022-10-18 17:42 | EX.ED.DYSGE1 ---
HPI History of Present Illness Chief Complaint: Abd [facility] Medical History Anxiety Hepatitis B Hyponatremia Rheumatoid arthritis Home Medications hydrocodone-acetaminophen 5-325mg 5mg-325mg 1 tab PO Q6H PRN PRN Pain 3 days #12 TABLETS 10/02/22 [Rx Last Taken Unknown] ondansetron 4 mg disintegrating tablet 4 mg PO Q8H PRN PRN Nausea #10 tabs 10/18/22 [Rx Last Taken Unknown] oxycodone 5 mg capsule 5 mg PO Q6H PRN pain 3 days #12 caps 10/18/22 [Rx Last Taken Unknown] sulfamethoxazole 800 mg-trimethoprim 160 mg tablet (Bactrim DS) 1 tab PO BID 7 days #14 tabs 10/18/22 [Rx Last Taken Unknown] tamsulosin 0.4 mg capsule 0.4 mg PO DAILY #7 CAPSULES 10/18/22 [Rx Last Taken Unknown] Allergy/AdvReac Type Severity Reaction Status Date / Time No Known Allergies Allergy Verified 10/18/22 17:32 Family History Mother Cancer ovarian Grandmother Cancer leukemia Rheumatoid arthritis Surgical History H/O elbow surgery H/O hernia repair H/O lithotripsy Social History Smoking Status: Current every day smoker tobacco type: cigarettes alcohol intake: never substance use type: marijuana EXAM Physical Exam Const Vital Signs: 10/18/22 17:30 10/18/22 19:29 10/18/22 21:00 Temperature 97.5 F L Temperature Source Temporal Pulse Rate 89 Respiratory Rate 16 18 16 Blood Pressure 134/95 H Blood Pressure Mean 108 Pulse Ox 100 Oxygen Delivery Method Room Air 10/18/22 22:10 10/18/22 23:00 Temperature Temperature Source Pulse Rate Respiratory Rate Blood Pressure 132/88 H 132/88 H Blood Pressure Mean 102 102 Pulse Ox Oxygen Delivery Method MDM MDM MDM Narrative Medical decision making narrative: HISTORY OF PRESENT ILLNESS: 52-year-old male here with abdominal pain. He states the pain radiates around the back. He further states he has left flank pain rating to the groin, feels like prior nephrolithiasis. Does note nausea but no vomiting. He also endorses chest pain. He notes dysuria. Last bowel movement was today with no melena or hematochezia. Denies shortness of breath. The patient denies recent surgery in the last 4 weeks or immobilization in the last 3 days, denies previous diagnosis of DVT or PE, hemoptysis, unilateral leg swelling or malignancy with treatment the last 6 months. No estrogen use noted. Patient denies sudden onset of pain, no tearing sensation, no migratory symptoms, no new numbness, weakness or loss of sensation. Patient denies family history or personal history of Marfan syndrome or Clover-Danlos REVIEW OF SYSTEMS: Pertinent positives: Abdominal pain, chest pain, nausea Pertinent negatives: Syncope, focal weakness, testicular tenderness PHYSICAL EXAM: Nursing triage notes reviewed, Vital signs reviewed Constitutional: please see mdm HENT: MMM Eyes: Pupils equal round and reactive to light, Extraocular muscles intact Neck: No stridor, no JVD, full neck ROM Lungs: Clear to auscultation, No wheezing or rales. No increased work of breathing, no conversational dyspnea, no accessory muscle use, no nasal flaring. No respiratory distress noted Heart: Regular rate and rhythm, No murmurs, No rubs and No gallops, 2+ distal pulses (radial, femoral, posterior tibial) in all extremities Abdomen: Soft, diffuse tenderness, but no rigidity, rebound or guarding, no obvious peritoneal signs, no palpable pulsatile abdominal masses, no auscultated abdominal bruit : Left CVAT Extremities: No edema Neuro: No focal neurological deficits, cranial nerves II through XII intact, 5/5 strength in all extremities. Intact sensation to light touch in all extremities, 2+ reflexes bilateral patella tendons. Normal gait. No ataxia. Skin: No rash or lesions noted MEDICAL DECISION MAKING: Chief Complaint: Abdominal pain External records reviewed: Last ED visit in September 2022 for pain all over. Last CT scan abdomen pelvis was in 2022 it showed no acute process [facility] Narrative: Patient was hemodynamically stable, afebrile, nontoxic-appearing. Abdomen is diffusely tender however there are no peritoneal signs. I considered the following differential diagnosis: Nephrolithiasis, pyelonephritis, intra-abdominal surgical process such as appendicitis, obstruction or perforation, ACS, anemia, pneumonia, electrolyte abnormality. I obtained a broad lab and imaging work-up to further elucidate the etiology patient complaints. I treated the patient with morphine, Zofran and IV fluids for symptomatic relief. Labs images were remarkable for evidence of nephrolithiasis. There is urinary inflammation as well. Patient had mild elevation in lipase however this not consistent with pancreatitis. His stone is of size that should pass on its own we will give Flomax, oral narcotics, instructions take Tylenol and ibuprofen and urology follow-up. Strict return precautions were discussed. In terms of the patient's chest pain. There is no signs of myocardial ischemia, anemia, electrode abnormalities. Patient had no PE risk factors. Chest x-ray showed no evidence of pneumonia. Patient's chest pain is unclear may be associated with his nephrolithiasis. Patient had no pulse deficits or historical factors to suggest aortic dissection. There is no sign of AAA on CT scan. Prior to discharge patient noted nausea and vomiting. Was treated with IV Reglan however he continued to have intractable nausea vomiting intractable pain. Given the patient's nephrolithiasis, hydronephrosis and signs of urinary inflammation that require antibiotics I do not feel comfortable him going home. I recommend inpatient admission. I talked to hospitalist here Dr. Campbell who did not feel complementing the patient given we do not have urology available for male patients today. I had a discussion with Dr. Campbell he recommended transfer. The patient and family were comfortable being transferred to [facility]. I spoke to Dr. Rendon (hospitalist) at [facility] who excepted the patient's case. Patient will be transferred to [facility] for ongoing pain control, nausea vomiting management and potential urology consultation if necessary. The patient's medical record and images will be transferred. Factors affecting care: Nephrolithiasis Social determinants of health: Current every day smoker History obtained from others: None Shared decision making: I will have a discussion with the patient and or visitors regarding risk/benefits of further testing or admission. They will be made aware of of the risk/benefits inherent in this decision they will be given the opportunity to voice understanding. Consults: None Lab Data Attestation: I reviewed the patient's lab results. Lab results narrative: EKG with normal sinus rhythm, normal axis, no intervals, no STEMI CBC shows leukocytosis suggestive of systemic inflammation, mild baseline anemia, no thrombocytopenia BMP without evidence of significant electrolyte abnormalities, no anion gap, no acute kidney injury. UA without definitive evidence of infection Troponin is negative, no evidence of myocardial ischemia Lipase elevated but not consistent with acute pancreatitis Labs: Laboratory Results - last 24 hr 10/18/22 10/18/22 10/18/22 18:20 18:20 18:20 WBC 11.4 H RBC 4.87 Hgb 10.9 L Hct 35.8 L MCV 73.5 L MCH 22.4 L MCHC 30.4 L RDW Std Deviation 43.0 RDW Coeff of Becca 16.0 H Plt Count 584 H MPV 8.9 Immature Gran % (Auto) 1.000 H Neut % (Auto) 75.8 H Lymph % (Auto) 12.0 L [place]inta % (Auto) 6.9 Eos % (Auto) 3.8 Baso % (Auto) 0.5 Absolute Neuts (auto) 8.7 H Absolute Lymphs (auto) 1.37 Nucleated RBC % 0 Sodium 136 Potassium 4.1 Chloride 103 Carbon Dioxide 23.0 Anion Gap 10 BUN 12 Creatinine 0.85 Estim Creat Clear Calc 110.74 Est GFR (MDRD) Af Amer 123 Est GFR (MDRD) Non-Af 101 BUN/Creatinine Ratio 14.1 Glucose 106 Calcium 9.8 Troponin I High Sens 4 Lipase 145 H Urine Color Yellow Urine Clarity Sl. Cloudy Urine pH 5.0 Ur Specific Platter 1.025 Urine Protein 30 H Urine Glucose (UA) Normal Urine Ketones 5 H Urine Occult Blood 250 H Urine Nitrite Negative Urine Bilirubin Negative Urine Urobilinogen 1 H Ur Leukocyte Esterase 100 H Urine RBC 25-50 SEEN Urine WBC 5-10 SEEN Ur Squamous Epith Cells 0-5 SEEN Calcium Oxalate Crystal RARE Urine Bacteria RARE Urine Mucus 0 SEEN Radiography Chest X-Ray - ED: Read by ED Physician Diagnostic Testing: Clinical Impression(s) from Imaging Studies Abdomen/Pelvis CT 10/18/22 18:04 IMPRESSION: (NOT LISTED IN ORDER OF SIGNIFICANCE) Moderate hydronephrosis caused by distal left 4.9 mm ureteral stone Urinary bladder wall has wall thickening. This can be related to a partially contractile state. However, a cystitis is not excluded. Urinalysis should be performed in an effort to exclude cystitis. Other findings as above. Electronically Signed: Cameron Gonzalez MD at 19:06 EDT , Chest X-Ray 10/18/22 18:50 IMPRESSION: No radiographic evidence of acute cardiopulmonary disease. Electronically Signed: Cameron Gonzalez MD at 19:22 EDT , I have personally reviewed the patient's chest x-ray. Chest x-ray is unremarkable for pulmonary edema, pneumothorax, pneumonia or focal cardiopulmonary abnormality. Discharge Plan Triage Chief Complaint: Abd Pain ED Provider: Dajuan Bhatti Dx/Rx/DC Orders Clinical Impression: Nephrolithiasis, Hydronephrosis Instructions: ED Kidney Stone Undescended No ... Prescriptions: New tamsulosin 0.4 mg capsule 0.4 mg PO DAILY Qty: 7 0RF oxycodone 5 mg capsule 5 mg PO Q6H PRN (Reason: pain) 3 Days Qty: 12 0RF sulfamethoxazole-trimethoprim [Bactrim DS] 800-160 mg tablet 1 tab PO BID 7 Days Qty: 14 0RF ondansetron 4 mg tablet,disintegrating 4 mg PO Q8H PRN PRN (Reason: Nausea) Qty: 10 0RF No Action hydrocodone-acetaminophen [hydrocodone-acetaminophen] 5-325 mg tablet 1 tab PO Q6H PRN PRN (Reason: Pain) 3 Days Qty: 12 0RF Stand Alone Forms: ED Work / School Excuse Primary Care Provider: Care Physician,No Primary Referrals: Bert Bowens MD [Med Staff - Active Staff] - Activity Restrictions/Additional Instructions: Thank you for trusting us with your care today! Please take Tylenol (2 pills, 650 mg), ibuprofen (2 pills, 400 mg) every 6 hours as needed for pain and fever control. Please take Flomax as prescribed. If this pain regimen does not work please add oxycodone for breakthrough pain. Please return to the emergency department if your symptoms change or worsen. Specifically if develop worsening pain, he cannot tolerate your pain medicine by mouth. If you lose consciousness. Please follow with your primary care physician or urology for further outpatient evaluation and management. Disposition Disposition: Acute Care Hospital Discharge Location: [facility] Discharge Date/Time: 10/18/22 23:31
--- NOTE | 2022-10-18 18:04 | CT_ITS ---
STUDY: CT Abdomen And Pelvis W/ Contrast Injection 10/18/2022 7:02 PM REASON FOR EXAM: Male, 52 years old. Left flank pain, history of hernia repair, kidney stones, hepatitis B. Abdominal pain Individualized dose optimization techniques were used for this CT. COMPARISON: 07.25.22. TECHNIQUE: CT Abdomen And Pelvis W/ Contrast Injection IV 75mL Isovue-370 FINDINGS: There are atherosclerotic calcifications of visualized coronary arteries. The visualized portions of the heart are within normal limits. Normal liver. Normal gallbladder and extrahepatic biliary system. Normal spleen. Normal pancreas. Normal bilateral adrenal glands. Non obstructive 2 mm right renal parenchymal stones. Non obstructive 4 - 7.2 mm left renal parenchymal stones. Moderate hydronephrosis caused by distal left 4.9 mm ureteral stone. Normal visualized stomach. Normal small intestine. Stool throughout the colon. There is non-visualization of the appendix. There are calcifications of the abdominal aorta. This is consistent for atherosclerotic disease. There is NO abdominal aortic aneurysm. Vascular workup can be obtained based on clinical correlation. Normal inferior vena cava. Subcentimeter mesenteric lymph nodes. Urinary bladder wall has wall thickening. This can be related to a partially contractile state. However, a cystitis is not excluded. Urinalysis should be performed in an effort to exclude cystitis. There are prostatic calcifications. There is a left-sided inguinal hernia containing adipose tissue. There are diffuse degenerative changes of the visualized lumbar spine. CT/Abdomen/Pelvis W IV Cont ONLY IMPRESSION: (NOT LISTED IN ORDER OF SIGNIFICANCE) Moderate hydronephrosis caused by distal left 4.9 mm ureteral stone Urinary bladder wall has wall thickening. This can be related to a partially contractile state. However, a cystitis is not excluded. Urinalysis should be performed in an effort to exclude cystitis. Other findings as above. Electronically Signed: Cameron Gonzalez MD at 19:06 EDT ,
--- NOTE | 2022-10-18 18:04 | EKG12_ITS ---
Test Reason : Blood Pressure : / mmHG Vent. Rate : 078 BPM Atrial Rate : 078 BPM P-R Int : 114 ms QRS Dur : 090 ms QT Int : 376 ms P-R-T Axes : 045 048 049 degrees QTc Int : 428 ms Normal sinus rhythm Normal ECG Confirmed by SETH GRAFF, BARRETT ([id number]), department editor CHRISTEL HORVATH ([id number]) on 10/21/2022 11:35:02 AM Referred By: RODGER Confirmed By:BARRETT ANN MD
[2022-10-18] MEDS: Morphine 4 MG/ML Syringe IV ×2 (18:20→20:10)
[2022-10-18] MEDS: Ondansetron 4 MG/2 ML Vial IV (18:20)
[2022-10-18] MEDS: 0.9% Normal Saline 1,000 ML 1000 ML IV (18:23)
[2022-10-18 18:24] LABS: Mucous, Urine 0 SEEN /hpf (<or=2+)
[2022-10-18 18:28] LABS: Absolute Lymphocyte Count 1.37 X10^3/uL (0.83-4.51); Absolute Neutrophil Count 8.7 X10^3/uL (2.0-7.7); Basophil# 0.06 X10^3/uL; Basophil% 0.5 % (0-1); Eosinophil# 0.43 X10^3/uL; Eosinophils% 3.8 % (0-5); Hematocrit 35.8 % (40-54); Hemoglobin 10.9 g/dL (13.0-16.5); Lymphocyte # 1.37 X10^3/ul (0.83-4.51); Mean Corp Hgb Conc 30.4 g/dL (32-36); Mean Corpuscular Hgb 22.4 pg (27.0-32.0); Mean Corpuscular Volume 73.5 fL (80-94); Mean Platelet Vol. 8.9 fl (6.2-12.0); Monocyte# 0.79 X10^3/uL; Monocyte% 6.9 % (0-10); NRBC Flagged by Analyzer 0 % (0-5); Neutrophil # 8.68 X10^3/uL (2.7-7.7); Neutrophil % 75.8 % (47-70); Platelet Count 584 K/mm3 (150-450); Red Blood Count 4.87 M/mm3 (4.6-6.2); White Blood Count 11.4 K/mm3 (4.4-11.0)
[2022-10-18 18:29] LABS: Color, Urine Yellow (Yellow); Glucose, Dipstick Normal (Normal); Ketone-Dipstick 5 mg/dl (Negative); Leukocyte Esterase-Dipstick 100 /ul (Negative); Nitrite-Dipstick Negative (Negative); Occult Blood-Urine 250 /ul (Negative); Protein-Dipstick 30 mg/dl (Negative); Specific Gravity, Urine 1.025 (1.002-1.030); Urine Bilirubin Dipstick Negative (Negative); Urine Clarity Sl. Cloudy (Clear); Urine Urobilinogen 1 mg/dl (Normal)
[2022-10-18 18:33] LABS: Red Blood Cells-Urine 25-50 SEEN /hpf (0-5); White Blood Cells 5-10 SEEN /hpf (0-5)
[2022-10-18 18:34] LABS: Calcium Oxalate Crystals Ur RARE /hpf (<or=2+); Squamous Epithelial Cells - UA 0-5 SEEN /hpf (0-5)
[2022-10-18 18:35] LABS: Bacteria RARE /hpf (None Seen)
[2022-10-18 18:42] LABS: Anion Gap 10 (5-15); BUN 12 mg/dL (7-18); BUN/Creat Ratio 14.1 RATIO (10-20); Calcium,Total 9.8 mg/dL (8.5-10.1); Chloride 103 mmol/L (98-107); Creatinine, Serum 0.85 mg/dL (0.70-1.30); EST Glomerular Filtration Rate 101 mL/min (>60); Est Glom Filt Rate - Afr Amer 123 mL/min (>60); Estimated Creatinine Clearance 110.74 ml/min; Glucose 106 mg/dL (74-106); Lipase 145 U/L (13-75); Potassium 4.1 mmol/L (3.5-5.1); Sodium Level 136 mmol/L (136-145); Troponin-I HS 4 pg/mL (3.0-78.0)
--- NOTE | 2022-10-18 18:50 | RAD_ITS ---
EXAM: XR CHEST, 1 VIEW CLINICAL INDICATION: CP TECHNIQUE: Frontal view of the chest. COMPARISON: 07.25.22 FINDINGS: LUNGS AND PLEURAL SPACES: Unremarkable. No consolidation or edema. No pneumothorax. No effusion. HEART: Unremarkable. Cardiac silhouette not enlarged. MEDIASTINUM: Central airways and mediastinal contour are unremarkable. BONES/JOINTS: Unremarkable. SOFT TISSUES: Unremarkable. RAD/Chest 1 View (Portable) IMPRESSION: No radiographic evidence of acute cardiopulmonary disease. Electronically Signed: Cameron Gonzalez MD at 19:22 EDT ,
[2022-10-18 19:29] VITALS: RESP 18
[2022-10-18] MEDS: Metoclopramide 10 MG/2 ML Vial 5 MG IV (20:07)
[2022-10-18 21:00] VITALS: RESP 16
[2022-10-18] MEDS: proMETHazine 25 MG/ML Syringe 12.5 MG IM (22:02)
[2022-10-18] MEDS: Ceftriaxone 1 GM/50 ML BAG IV (22:04)
[2022-10-18 22:10] VITALS: BP 132/88
[2022-10-18 23:00] VITALS: BP 132/88
== END 2022-10-18 23:31 | disposition short-term general hospital (02) ==
PROVIDERS: Emergency Provider Emergency Medicine; Visit Provider Emergency Medicine
DX: N13.2 Hydronephrosis with renal and ureteral calculous obstruction (principal); F17.210 Nicotine dependence, cigarettes, uncomplicated
CPT/HCPCS: 71045; 74177; 80048; 81001; 83690; 84484; 85025; 93005; 96361; 96365; 96372; 96375; 96376; 99284; J7030; Q9967; A4216; J2405

== ENCOUNTER 2023-03-10 00:48 | Emergency (ER) | payer MEDICAID, SELFPAY ==
[2023-03-10 00:50] VITALS: BP 160/92; PULSE 64; RESP 18; TEMP 36.6; O2SAT 100; BMI 26.9
--- NOTE | 2023-03-10 00:51 | EX.ED.DYSGE1 ---
HPI History of Present Illness Chief Complaint: Abd Pain [facility] Medical History Anxiety Hepatitis B Hyponatremia Rheumatoid arthritis Home Medications meloxicam 15 mg tablet 15 mg PO DAILY 03/10/23 [History Last Taken Unknown] ondansetron 4 mg disintegrating tablet 4 mg PO Q8H PRN nausea and vomiting 3 days #9 tabs 03/10/23 [Rx Last Taken Unknown] Allergy/AdvReac Type Severity Reaction Status Date / Time No Known Allergies Allergy Verified 03/10/23 00:49 Family History Mother Cancer ovarian Grandmother Cancer leukemia Rheumatoid arthritis Surgical History H/O elbow surgery H/O hernia repair H/O lithotripsy Social History Smoking Status: Current every day smoker tobacco type: cigarettes alcohol intake: never substance use type: marijuana MDM MDM MDM Narrative Medical decision making narrative: HISTORY OF PRESENT ILLNESS: 52-year-old male here with mid abdominal pain since yesterday. States pain is severe 03/18. States he has history of pancreatitis. Notes history of hernia surgery otherwise no other abdominal surgeries. No vomiting notes nausea. Denies any trouble stools. This is not similar to prior kidney stone. States he may have pancreatitis alcohol but states his pancreatitis is flared by drinking milkshakes. States he had a milkshake earlier yesterday. REVIEW OF SYSTEMS: Pertinent positives: Abdominal pain Pertinent negatives: Vomiting, dark stools PHYSICAL EXAM: Nursing triage notes reviewed, Vital signs reviewed Constitutional: please see mdm HENT: MMM Eyes: Pupils equal round and reactive to light, Extraocular muscles intact, no scleral icterus Neck: No stridor, no JVD, full neck ROM Lungs: Clear to auscultation, No wheezing or rales. No increased work of breathing, no conversational dyspnea, no accessory muscle use, no nasal flaring. No respiratory distress noted Heart: Regular rate and rhythm, No murmurs, No rubs and No gallops, 2+ distal pulses (radial, femoral, posterior tibial) in all extremities Abdomen: Soft, epigastric TTP, mild distention. Negative Polanco sign. there is no rigidity, rebound or guarding, no obvious peritoneal signs, no palpable pulsatile abdominal masses, no auscultated abdominal bruit : No CVAT Extremities: No edema Neuro: No focal neurological deficits, cranial nerves II through XII intact, 5/5 strength in all extremities. Intact sensation to light touch in all extremities, 2+ reflexes bilateral patella tendons. Normal gait. No ataxia. Skin: No rash or lesions noted, no jaundice noted MEDICAL DECISION MAKING: Chief Complaint: Abdominal pain External records reviewed: Hydronephrosis with a 4.9 mm ureteral stone left imaging reviewed: CT scan from October 2022 shows Factors affecting care: Kidney stone, pancreatitis Social determinants of health: none History obtained from others: none Consults: none [facility] Narrative: The patient was hemodynamically stable, afebrile, nontoxic-appearing. I considered the following differential diagnosis: Pancreatitis, hepatobiliary, perforation, acute cholecystitis, nephrolithiasis, arrhythmia, ACS Abdominal exam with diffuse tenderness, mild distention. I gave the patient IV fluids, IV narcotics, IV anti-inflammatories and Zofran. ALL IMAGES (IF OBTAINED) HAVE BEEN PERSONALLY REVIEWED AND INTERPRETED BY MYSELF. CT scan the abdomen pelvis is negative for acute surgical pathology CBC without leukocytosis, severe anemia, no thrombocytopenia. BMP without evidence of significant electrolyte abnormalities, no anion gap, no acute kidney injury. Urinalysis shows no evidence of urinary inflammation suggestive of UTI LFTs show no evidence of hepatobiliary pathology. I do not suspect patient is suffering from acute cholecystitis given lack of upper quadrant tenderness, negative Polanco sign, no evidence of hepatobiliary obstruction, elevated liver enzymes, elevated lipase, no gallstones noted on CT scan. While or required ultrasound is more sensitive and specific for gallbladder pathology I do not feel this is indicated at this time given lack of clinical and physical exam and laboratory findings are suggestive of this etiology Lipase is wnl indicating no pancreatic inflammation. EKG with sinus bradycardia, normal [place] interval, no dropped beats, no evidence of heart block, no evidence of ischemia Troponin negative The amalgamation the patient's labs images show no evidence of severe life-threatening process. Unclear etiology appears abdominal pain could be inflammatory in nature. Instructed Tylenol and ibuprofen and close gastroenterology follow-up. The patient and/or family, caregivers express understanding. The patient and/or family, caregivers agrees with the plan. Shared decision making: I will have a discussion with the patient and or visitors regarding risk/benefits of further testing or admission. They will be made aware of of the risk/benefits inherent in this decision they will be given the opportunity to voice understanding. Total critical care time today provided was at least 0 minutes. This excludes separately billable procedures. Critical care time (if documented) is secondary to the patient having high probability of clinically significant/life threatening deterioration in the patient's condition which required my urgent intervention. Impression: 1. Abdominal pain 2. Elevated blood pressure 3. Bradycardia Dispo: Discharge Discharge Plan Triage Chief Complaint: Abd Pain ED Provider: Dajuan Bhatti Dx/Rx/DC Orders Instructions: ED Abdominal Pain Unkn Cause Male... Prescriptions: New ondansetron 4 mg tablet,disintegrating 4 mg PO Q8H PRN (Reason: nausea and vomiting) 3 Days Qty: 9 0RF No Action meloxicam 15 mg tablet 15 mg PO DAILY Patient Comments: TAKE 1 TABLET BY MOUTH ONCE DAILY WITH FOOD Stand Alone Forms: ED Work / School Excuse Primary Care Provider: Care Physician,No Primary Referrals: Jerry Barron, DO [Med Staff - Active Staff] - Activity Restrictions/Additional Instructions: Thank you for trusting us with your care today! Please take Tylenol (2 pills, 650 mg), ibuprofen (2 pills, 400 mg) every 6 hours as needed for pain and fever control. Please return to the emergency department if your symptoms change or worsen. Please follow with your primary care physician for further outpatient evaluation and management. Disposition Disposition: Home, Self Care
[2023-03-10] MEDS: Ondansetron 4 MG/2 ML Vial IV ×2 (01:08→02:59)
[2023-03-10] MEDS: Morphine 4 MG/ML Syringe IV ×2 (01:08→02:59)
[2023-03-10] MEDS: 0.9% Normal Saline (1000mL) 1,000 ML 1000 ML IV (01:10)
[2023-03-10] MEDS: Ketorolac 15 MG/ML Vial IV (01:10)
[2023-03-10 01:13] LABS: Red Blood Cells-Urine 0 SEEN /hpf (0-5)
[2023-03-10 01:17] LABS: Absolute Neutrophil Count 4.5 X10^3/uL (2.0-7.7); Basophil# 0.08 X10^3/uL; Basophil% 0.9 % (0-1); Eosinophil# 0.34 X10^3/uL; Eosinophils% 3.7 % (0-5); Hematocrit 44.2 % (40-54); Hemoglobin 13.9 g/dL (13.0-16.5); Lymphocyte % 36.6 % (19-41); Mean Corp Hgb Conc 31.4 g/dL (32-36); Mean Corpuscular Hgb 25.2 pg (27.0-32.0); Mean Corpuscular Volume 80.2 fL (80-94); Mean Platelet Vol. 9.9 fl (6.2-12.0); Monocyte# 0.83 X10^3/uL; Monocyte% 8.9 % (0-10); NRBC Flagged by Analyzer 0 % (0-5); Neutrophil # 4.52 X10^3/uL (2.7-7.7); Neutrophil % 48.5 % (47-70); Platelet Count 289 K/mm3 (150-450); RBC Distribution Width CV 17.9 % (11.6-14.6); RBC Distribution Width SD 51.8 fl (35.1-43.9); Red Blood Count 5.51 M/mm3 (4.6-6.2); White Blood Count 9.3 K/mm3 (4.4-11.0)
[2023-03-10 01:20] LABS: Color, Urine Yellow (Yellow); Glucose, Dipstick Normal (Normal); Ketone-Dipstick 5 mg/dl (Negative); Leukocyte Esterase-Dipstick 25 /ul (Negative); Nitrite-Dipstick Negative (Negative); Occult Blood-Urine Negative /ul (Negative); Protein-Dipstick 15 mg/dl (Negative); Specific Gravity, Urine 1.015 (1.002-1.030); Urine Bilirubin Dipstick Negative (Negative); Urine Clarity Clear (Clear); Urine Urobilinogen 1 mg/dl (Normal); Urine pH 6.5 (5.0 - 8.0)
[2023-03-10 01:30] LABS: AST(SGOT) 30 U/L (15-37); Alanine Aminotransfer ALT/SGPT 33 U/L (16-61); Albumin, Serum 3.3 g/dL (3.2-5.0); Alkaline Phosphatase 77 U/L (45-117); Anion Gap 6 (5-15); BUN 17 mg/dL (7-18); BUN/Creat Ratio 17.5 RATIO (10-20); Calcium,Total 8.7 mg/dL (8.5-10.1); Chloride 110 mmol/L (98-107); Creatinine, Serum 0.97 mg/dL (0.70-1.30); EST Glomerular Filtration Rate 87 mL/min (>60); Est Glom Filt Rate - Afr Amer 105 mL/min (>60); Estimated Creatinine Clearance 97.04 ml/min; Globulin 3.3 g/dL (2.2-4.2); Glucose 83 mg/dL (74-106); Lipase 33 U/L (13-75); Potassium 3.9 mmol/L (3.5-5.1); Protein, Total 6.6 g/dL (6.4-8.2); Sodium Level 145 mmol/L (136-145)
[2023-03-10 01:33] LABS: Bacteria 1+ /hpf (None Seen); Mucous, Urine 2+ /hpf (<or=2+); Squamous Epithelial Cells - UA 0-5 SEEN /hpf (0-5); White Blood Cells 0-5 SEEN /hpf (0-5)
--- NOTE | 2023-03-10 01:35 | CT_ITS ---
EXAM: CT ABDOMEN AND PELVIS WITH INTRAVENOUS CONTRAST CLINICAL INDICATION: diffuse abdominal pain TECHNIQUE: Helically acquired images were obtained of the abdomen and pelvis with intravenous contrast. This CT exam was performed using one or more of the following dose reduction techniques: automated exposure control, adjustment of the mA and/or kV according to patient size, and/or use of iterative reconstruction technique. CONTRAST: IV 100mL Isovue-370 RADIATION DOSE: Total DLP: 1052.51 mGy-cm. COMPARISON: CT of 10/18/2022. FINDINGS: LOWER THORAX: Chronic pleural-parenchymal scarring at the right lung base. Normal left basilar atelectasis has developed, an incidental finding. No pleural effusion. No coronary artery calcification is visualized. No significant pericardial effusion. ABDOMEN: LIVER: Liver demonstrates mild fatty infiltration. Right hepatic lobe measures 20.8 cm in cephalocaudal dimension. Portal veins enhance normally. GALLBLADDER AND BILE DUCTS: Unremarkable. No calcified gallstones. No gallbladder distention or wall edema. No intra- or extrahepatic biliary ductal dilation. PANCREAS: Unremarkable. No focal cystic or solid mass. SPLEEN: Unremarkable. Normal size without focal cystic or solid mass. ADRENALS: Unremarkable. No nodules. KIDNEYS AND URETERS: Within the left renal pelvis is a 11 mm nonobstructing stone. Within the left renal mid pole collecting system are 2 nonobstructing stones, measuring 4 and 2 mm in diameter. 2 punctate nonobstructing stones are seen at the right renal lower pole, one of which is parenchymal wall, while the other may lie within the collecting system. No perirenal stranding, hydronephrosis or obstructing ureteral. The previously noted left-sided hydronephrosis has resolved. STOMACH AND BOWEL: Unremarkable. No gastric mural thickening, periduodenal inflammatory changes or distended small bowel loops. No findings of small bowel obstruction, diverticulitis or colitis. PELVIS: APPENDIX: Normal. No evidence of acute appendicitis. BLADDER: Partially distended urinary bladder is unremarkable. REPRODUCTIVE: Unremarkable as visualized. No mass. ABDOMEN and PELVIS: INTRAPERITONEAL SPACE: Unremarkable. No ascites or other fluid collection. No free air. BONES/JOINTS: Unremarkable. No suspicious lytic or blastic abnormality. No acute osseous abnormality. SOFT TISSUES: Small fat-filled left inguinal hernia. VASCULATURE: Normal caliber abdominal aorta. No AAA. BINTA and SMA enhance normally. LYMPH NODES: Normal size lymph nodes in the left groin. No para-aortic adenopathy. CT/Abdomen/Pelvis W IV Cont ONLY IMPRESSION: 1. Enlarged fatty liver. 2. Nonobstructing bilateral renal calculi. 3. Normal appendix. 4. No acute intra-abdominal abnormality. Electronically Signed: Juan Miguel Cottrell MD at 2:37 EDT ,
--- NOTE | 2023-03-10 03:01 | EKG12_ITS ---
Test Reason : Blood Pressure : / mmHG Vent. Rate : 039 BPM Atrial Rate : 039 BPM P-R Int : 122 ms QRS Dur : 092 ms QT Int : 524 ms P-R-T Axes : 055 048 056 degrees QTc Int : 421 ms Critical Test Result: Low HR Marked sinus bradycardia Abnormal ECG Confirmed by SETH GRAFF, BARRETT ([id number]), photography editor OTILIO GARCIA ([id number]) on 03/11/2023 2:41:41 PM Referred By: Confirmed By:BARRETT ANN MD
[2023-03-10 04:08] LABS: Troponin-I HS 5 pg/mL (3.0-78.0)
[2023-03-10 04:16] VITALS: BP 165/88
[2023-03-10 04:19] VITALS: BP 165/88
== END 2023-03-10 04:21 | disposition home or self-care (01) ==
PROVIDERS: Emergency Provider Emergency Medicine; Visit Provider Emergency Medicine
DX: R10.9 Unspecified abdominal pain (principal); F12.90 Cannabis use, unspecified, uncomplicated; R00.1 Bradycardia, unspecified; R03.0 Elevated blood-pressure reading, without diagnosis of hypertension; Z87.442 Personal history of urinary calculi; R11.0 Nausea
CPT/HCPCS: 36415; 74177; 80053; 81001; 83690; 84484; 85025; 93005; 96361; 96374; 96375; 96376; 99283; J7030; Q9967; A4216; J2405

== ENCOUNTER 2023-07-12 17:48 | Emergency (ER) | payer MEDICAID, SELFPAY ==
[2023-07-12] VITALS (21 sets, daily range): BP systolic 107–158; BP diastolic 62–91; PULSE 44–69; RESP 9–23; TEMP 36.4; O2SAT 93–98; BMI 30.5
[2023-07-12 18:46] LABS: Bacteria 0 SEEN /hpf (None Seen); Mucous, Urine 0 SEEN /hpf (<or=2+); Red Blood Cells-Urine 0 SEEN /hpf (0-5); Squamous Epithelial Cells - UA 0 SEEN /hpf (0-5); White Blood Cells 0 SEEN /hpf (0-5)
[2023-07-12 18:47] LABS: Absolute Lymphocyte Count 1.61 X10^3/uL (0.83-4.51); Absolute Neutrophil Count 8.4 X10^3/uL (2.0-7.7); Basophil# 0.04 X10^3/uL; Basophil% 0.4 % (0-1); Eosinophil# 0.19 X10^3/uL; Eosinophils% 1.7 % (0-5); Hemoglobin 14.8 g/dL (13.0-16.5); Lymphocyte # 1.61 X10^3/ul (0.83-4.51); Lymphocyte % 14.7 % (19-41); Mean Corp Hgb Conc 32.9 g/dL (32-36); Mean Corpuscular Volume 82.1 fL (80-94); Mean Platelet Vol. 9.9 fl (6.2-12.0); Monocyte# 0.66 X10^3/uL; NRBC Flagged by Analyzer 0 % (0-5); Neutrophil # 8.37 X10^3/uL (2.7-7.7); Neutrophil % 76.7 % (47-70); Platelet Count 278 K/mm3 (150-450); RBC Distribution Width CV 13.6 % (11.6-14.6); RBC Distribution Width SD 40.5 fl (35.1-43.9); Red Blood Count 5.48 M/mm3 (4.6-6.2); White Blood Count 10.9 K/mm3 (4.4-11.0)
[2023-07-12] MEDS: Morphine 4 MG/ML Syringe IV ×2 (18:48→20:40)
[2023-07-12] MEDS: 0.9% Normal Saline (1000mL) 1,000 ML 1000 ML IV (18:48)
[2023-07-12 18:53] LABS: Color, Urine Yellow (Yellow); Glucose, Dipstick Normal (Normal); Ketone-Dipstick Negative (Negative); Leukocyte Esterase-Dipstick 25 /ul (Negative); Nitrite-Dipstick Negative (Negative); Occult Blood-Urine Negative /ul (Negative); Protein-Dipstick Negative (Negative); Specific Gravity, Urine 1.015 (1.002-1.030); Urine Bilirubin Dipstick Negative (Negative); Urine Clarity Clear (Clear); Urine Urobilinogen Normal (Normal)
--- NOTE | 2023-07-12 18:55 | RAD_ITS ---
INDICATION: Chest pain EXAMINATION/TECHNIQUE: X-RAY - XR Chest 2 Views COMPARISON: FINDINGS: LINES/DEVICES: None. LUNGS: No consolidation, edema or effusion. No pneumothorax. MEDIASTINUM AND CARDIOVASCULAR STRUCTURES: Cardiac silhouette not enlarged. Central airways and mediastinal contour are unremarkable. BONES AND SOFT TISSUES: Unremarkable. RAD/Chest PA and Lateral IMPRESSION: No radiographic evidence of acute cardiopulmonary disease. Electronically Signed: Felice Snyder DO at 20:18 EST Reading Location ID and State: [facility] / [place] Tel [phone], Service support ,
--- NOTE | 2023-07-12 19:07 | EX.ED.DYSGE1 ---
HPI History of Present Illness Chief Complaint: Cold Sx Informant: patient Onset/Context/Timing Onset: Month(s) (2) Context: Gradual Onset Timing: Continuous Quality: Sharp, aching Location: Chest, bilateral lower leg Worsened by: Rest Relieved by: Moving Narrative Narrative: Patient presents with chest pain, upper respiratory congestion, and bilateral leg pain that has been getting progressively worse for the past 2 months. Patient states it is gradually getting worse. Patient states it is constant. Patient states his pain is better with moving and ambulating and worse with rest. Patient describes his pain as aching and sharp. Patient states it is mainly in his chest and both lower legs. Patient admits to recent upper respiratory congestion and sinus pressure. Patient admits to some nausea but denies any vomiting. Patient admits to some diarrhea but denies any melena or hematochezia. Patient denies any shortness of breath or cough. [facility] Medical History Anxiety Hepatitis B Hyponatremia Rheumatoid arthritis Home Medications meloxicam 15 mg tablet 15 mg PO DAILY 03/10/23 [History Last Taken Unknown] hydrocodone-acetaminophen 5-325mg 5mg-325mg 1 tab PO Q6H PRN PRN Pain 3 days #10 TABLETS 07/12/23 [Rx Last Taken Unknown] Allergy/AdvReac Type Severity Reaction Status Date / Time No Known Allergies Allergy Verified 03/10/23 00:49 Family History Mother Cancer ovarian Grandmother Cancer leukemia Rheumatoid arthritis Surgical History H/O elbow surgery H/O hernia repair H/O lithotripsy Social History Smoking Status: Current every day smoker tobacco type: cigarettes alcohol intake: never substance use type: marijuana ROS ROS ED Constitutional Constitutional ED: Denies chills or fever(s) Eyes Eyes: Denies blurry vision or change in vision ENT ENT ED: Denies rhinorrhea or sore throat Cardiovascular Cardiovascular: Reports chest pain; Denies palpitations Respiratory/Chest Respiratory/Chest: Denies cough or dyspnea Gastrointestinal Gastrointestinal: Reports diarrhea and nausea; Denies vomiting Genitourinary Genitourinary ED: Denies dysuria or hematuria Musculoskeletal Musculoskeletal: Denies back pain or neck pain Integumentary Denies abscess or rash Neurologic Neurologic: Reports headache(s); Denies weakness Allergic/Immunologic Allergic/Immunologic ED: Denies mouth swelling or urticaria EXAM Physical Exam Const Vital Signs: 07/12/23 17:49 07/12/23 18:47 07/12/23 18:49 Temperature 97.6 F L Temperature Source Temporal Pulse Rate 69 52 L Respiratory Rate 15 13 Respiratory Effort Normal Respiratory Pattern Normal Blood Pressure 158/91 H 122/69 H Blood Pressure Mean 113 86 Pulse Ox 98 96 Oxygen Delivery Method Room Air Room Air 07/12/23 18:50 07/12/23 19:00 07/12/23 19:02 Temperature Temperature Source Pulse Rate 45 L Respiratory Rate 9 L Respiratory Effort Respiratory Pattern Normal Blood Pressure 121/78 H Blood Pressure Mean 92 Pulse Ox 95 Oxygen Delivery Method 07/12/23 19:08 07/12/23 19:10 07/12/23 19:15 Temperature Temperature Source Pulse Rate 46 L Respiratory Rate Respiratory Effort Respiratory Pattern Blood Pressure 108/76 127/73 H Blood Pressure Mean 87 90 Pulse Ox 96 Oxygen Delivery Method 07/12/23 19:20 07/12/23 19:30 07/12/23 19:40 Temperature Temperature Source Pulse Rate 44 L 45 L 44 L Respiratory Rate 12 12 13 Respiratory Effort Respiratory Pattern Blood Pressure 107/75 Blood Pressure Mean 86 Pulse Ox 93 94 94 Oxygen Delivery Method 07/12/23 19:45 07/12/23 19:50 07/12/23 20:00 Temperature Temperature Source Pulse Rate 47 L 51 L 45 L Respiratory Rate 11 L 23 H 15 Respiratory Effort Respiratory Pattern Blood Pressure 135/82 H 112/73 Blood Pressure Mean 96 85 Pulse Ox 94 95 96 Oxygen Delivery Method 07/12/23 20:10 07/12/23 20:15 07/12/23 20:20 Temperature Temperature Source Pulse Rate 51 L 45 L 48 L Respiratory Rate 17 11 L 16 Respiratory Effort Respiratory Pattern Blood Pressure 118/75 Blood Pressure Mean 87 Pulse Ox 93 95 93 Oxygen Delivery Method 07/12/23 20:30 07/12/23 20:40 07/12/23 20:45 Temperature Temperature Source Pulse Rate 45 L 46 L 48 L Respiratory Rate 15 11 L 16 Respiratory Effort Respiratory Pattern Blood Pressure 109/62 126/83 H Blood Pressure Mean 76 95 Pulse Ox 96 95 97 Oxygen Delivery Method Room Air 07/12/23 20:50 07/12/23 21:00 Temperature Temperature Source Pulse Rate 54 L 52 L Respiratory Rate 19 H 15 Respiratory Effort Respiratory Pattern Blood Pressure Blood Pressure Mean Pulse Ox 97 Oxygen Delivery Method Positive well nourished, well developed and obese General Appearance ED: well developed and NAD Nutritional Appearance: obese HEENT Reports moist mucous membranes Neck supple and no JVD Chest Wall palpation of chest normal Resp normal respiratory effort and clear to auscultation bilaterally Cardio regular rate and regular rhythm GI Palpation: soft and tender epigastric, LUQ and RUQ; Negative for guarding or rebound tenderness present Extremity Extremity Narrative: There is some mild tenderness over the ankles and feet bilaterally. There is no calf tenderness. There is no edema or ecchymosis noted. There is no deformity noted. There is good range of motion. Pedal pulses were equal bilaterally. Strength is 5/5 bilaterally in the lower extremities. There are no sensory deficits noted. General Extremety ED: Yes tenderness Neuro oriented x3, CN's II-XII intact bilaterally and no sensory deficits noted Sensorium / Orientation: alert Motor Exam: strength 5/5 throughout Psych mental status grossly normal Skin no rashes or lesions noted MDM MDM MDM Narrative Medical decision making narrative: Differential diagnosis includes viral illness, pneumonia, urinary tract infection, cholecystitis, cholelithiasis, pancreatitis, gastroesophageal reflux disease, cardiac dysrhythmia, and cardiac ischemia. EKG will be obtained to assess for cardiac dysrhythmia and cardiac ischemia. Chest x-ray will be obtained to assess for pneumonia and pneumothorax. CBC will be obtained to assess for leukocytosis and anemia. Comprehensive metabolic profile will be obtained to assess for hepatic function, renal function, and electrolyte abnormality. Lipase will be obtained to assess for pancreatitis. Urinalysis will be obtained to assess for urinary tract infection. COVID-19, influenza, and RSV PCR will be obtained to assess for viral infection. Lab Data Attestation: I reviewed the patient's lab results. Lab results narrative: CBC was reviewed and was within normal limits. Urinalysis was reviewed. There is no evidence of urinary tract infection or hematuria. Comprehensive metabolic profile was reviewed and was within normal limits. Lipase was reviewed and was elevated at 285. COVID-19 PCR was reviewed and was negative. Influenza PCR was reviewed and was negative for influenza A and influenza B. RSV PCR was reviewed and was negative. Labs: Laboratory Results - last 24 hr 07/12/23 18:40 WBC 10.9 RBC 5.48 Hgb 14.8 Hct 45.0 MCV 82.1 MCH 27.0 MCHC 32.9 RDW Std Deviation 40.5 RDW Coeff of Becca 13.6 Plt Count 278 MPV 9.9 Immature Gran % (Auto) 0.500 Neut % (Auto) 76.7 H Lymph % (Auto) 14.7 L [place] % (Auto) 6.0 Eos % (Auto) 1.7 Baso % (Auto) 0.4 Absolute Neuts (auto) 8.4 H Absolute Lymphs (auto) 1.61 Nucleated RBC % 0 Sodium 138 Potassium 4.4 Chloride 110 H Carbon Dioxide 26.0 Anion Gap 2 L BUN 15 Creatinine 0.82 Estim Creat Clear Calc 129.42 Est GFR (MDRD) Af Amer 128 Est GFR (MDRD) Non-Af 106 BUN/Creatinine Ratio 18.3 Glucose 88 Calcium 9.2 Total Bilirubin 0.40 AST 22 ALT 20 Alkaline Phosphatase 64 Troponin I High Sens 4 Total Protein 7.2 Albumin 3.8 Globulin 3.4 Albumin/Globulin Ratio 1.1 Lipase 285 H Urine Color Yellow Urine Clarity Clear Urine pH 8.0 Ur Specific [place] 1.015 Urine Protein Negative Urine Glucose (UA) Normal Urine Ketones Negative Urine Occult Blood Negative Urine Nitrite Negative Urine Bilirubin Negative Urine Urobilinogen Normal Ur Leukocyte Esterase 25 H Urine RBC 0 SEEN Urine WBC 0 SEEN Ur Squamous Epith Cells 0 SEEN Urine Bacteria 0 SEEN Urine Mucus 0 SEEN Radiography Diagnostic Testing: Clinical Impression(s) from Imaging Studies Chest X-Ray 07/12/23 18:55 IMPRESSION: No radiographic evidence of acute cardiopulmonary disease. Electronically Signed: Felice Snyder DO at 20:18 EST Reading Location ID and State: [facility] / [place] Tel [phone], Service support , Portable 1 view chest x-ray was obtained. On my independent interpretation, lung hernandez are clear. There is normal cardiac silhouette. Bony thorax is normal. There is no acute process noted. Radiologist also interpreted the x-ray and agrees. EKG Initial EKG: Attestation: I personally reviewed and interpreted this EKG as follows: Interpretation: No Acute Injury Pattern and Sinus Bradycardia (46) Comments: EKG was obtained. On my independent interpretation, it showed a sinus bradycardia with a rate of 46. [place] interval, QRS interval, and QTc intervals were all normal. [place] was normal. There are no acute ST or T wave changes. Prior: Unchanged (03/10/2023) Treatment and Re-Evaluation :: Patient was given IV fluids, morphine, and Zofran. Patient was advised of his findings. Patient states he has been told he has had pancreatitis in the past. Patient was given a prescription for a short course of [place]. Patient was instructed to start with a liquid diet and advance to a bland diet as he feels better. Patient was instructed to follow-up with his primary care physician in 3 to 5 days. Patient and spouse understood and were agreeable with the plan. All questions were answered. Discharge Plan Triage Chief Complaint: Cold Sx ED Provider: Don Corley Dx/Rx/DC Orders Clinical Impression: Pancreatitis, Smoker Instructions: ED Pancreatitis Prescriptions: New hydrocodone-acetaminophen [hydrocodone-acetaminophen] 5-325 mg tablet 1 tab PO Q6H PRN PRN (Reason: Pain) 3 Days Qty: 10 0RF No Action meloxicam 15 mg tablet 15 mg PO DAILY Patient Comments: TAKE 1 TABLET BY MOUTH ONCE DAILY WITH FOOD Primary Care Provider: Didier Simpson Referrals: Didier Simpson MD [Primary Care Provider] - 3-5 Days Disposition Disposition: Home, Self Care
[2023-07-12 19:15] LABS: ALB/GLOB Ratio 1.1 RATIO (0.9-2.4); AST(SGOT) 22 U/L (15-37); Alanine Aminotransfer ALT/SGPT 20 U/L (16-61); Albumin, Serum 3.8 g/dL (3.2-5.0); Alkaline Phosphatase 64 U/L (45-117); Anion Gap 2 (5-15); BUN 15 mg/dL (7-18); BUN/Creat Ratio 18.3 RATIO (10-20); Calcium,Total 9.2 mg/dL (8.5-10.1); Chloride 110 mmol/L (98-107); Creatinine, Serum 0.82 mg/dL (0.70-1.30); EST Glomerular Filtration Rate 106 mL/min (>60); Est Glom Filt Rate - Afr Amer 128 mL/min (>60); Estimated Creatinine Clearance 129.42 ml/min; Globulin 3.4 g/dL (2.2-4.2); Glucose 88 mg/dL (74-106); Lipase 285 U/L (13-75); Potassium 4.4 mmol/L (3.5-5.1); Protein, Total 7.2 g/dL (6.4-8.2); Sodium Level 138 mmol/L (136-145); Troponin-I HS 4 pg/mL (3.0-78.0)
[2023-07-12] MEDS: Ondansetron 4 MG/2 ML Vial IV (20:40)
== END 2023-07-12 21:11 | disposition home or self-care (01) ==
PROVIDERS: Emergency Provider Emergency Medicine; PCP Internal Medicine; Visit Provider Emergency Medicine
DX: K85.90 Acute pancreatitis without necrosis or infection, unspecified (principal); M06.9 Rheumatoid arthritis, unspecified; F17.210 Nicotine dependence, cigarettes, uncomplicated; Z79.899 Other long term (current) drug therapy; M79.604 Pain in right leg; M79.605 Pain in left leg; R07.9 Chest pain, unspecified
CPT/HCPCS: 71046; 80053; 81001; 83690; 84484; 85025; 87631; 93005; 96361; 96374; 96375; 96376; 99285; J7030; A4216; J2405

== ENCOUNTER 2024-10-12 23:07 | Observation (INO) | payer OTHER, SELFPAY ==
[2024-10-12 23:07] VITALS: BP 154/86; PULSE 62; RESP 16; TEMP 36.6; O2SAT 98; BMI 28.1
[2024-10-13] VITALS (16 sets, daily range): BP systolic 117–184; BP diastolic 65–115; PULSE 41–97; RESP 14–18; TEMP 36.2–36.7; O2SAT 95–100; BMI 29.0
[2024-10-13] MEDS: HYDROmorphone 1 MG/ML Syringe IV ×2 (00:02→01:50)
[2024-10-13] MEDS: 0.9% Normal Saline (1000mL) 1,000 ML 999 ML IV ×2 (00:02→01:10)
[2024-10-13] MEDS: Ondansetron 4 MG/2 ML Vial IV (00:02)
[2024-10-13 00:22] LABS: Absolute Lymphocyte Count 1.73 X10^3/uL (0.83-4.51); Absolute Neutrophil Count 7.1 X10^3/uL (2.0-7.7); Basophil# 0.04 X10^3/uL; Basophil% 0.4 % (0-1); Eosinophil# 0.21 X10^3/uL; Eosinophils% 2.1 % (0-5); Hematocrit 39.4 % (40-54); Hemoglobin 12.9 g/dL (13.0-16.5); Lymphocyte # 1.73 X10^3/ul (0.83-4.51); Lymphocyte % 17.5 % (19-41); Mean Corp Hgb Conc 32.7 g/dL (32-36); Mean Corpuscular Hgb 27.7 pg (27.0-32.0); Mean Corpuscular Volume 84.7 fL (80-94); Mean Platelet Vol. 11.6 fl (6.2-12.0); Monocyte% 8.1 % (0-10); NRBC Flagged by Analyzer 0 % (0-5); Neutrophil # 7.07 X10^3/uL (2.7-7.7); Neutrophil % 71.3 % (47-70); Platelet Count 202 K/mm3 (150-450); RBC Distribution Width CV 13.7 % (11.6-14.6); RBC Distribution Width SD 42.6 fl (35.1-43.9); Red Blood Count 4.65 M/mm3 (4.6-6.2); White Blood Count 9.9 K/mm3 (4.4-11.0)
[2024-10-13 00:47] LABS: Anion Gap 10 (5-15); BUN 25 mg/dL (4-19); BUN/Creat Ratio 24.8 RATIO (10-20); Calcium,Total 9.5 mg/dL (7.6-11.0); Carbon Dioxide 23.6 mmol/L (21.0-32.0); Chloride 104 mmol/L (98-108); EST Glomerular Filtration Rate 91 (>60); Estimated Creatinine Clearance 99.95 ml/min (50-250); Glucose 112 mg/dL (70-99); Potassium 4.6 mmol/L (3.3-5.1); Sodium Level 138 mmol/L (133-145)
[2024-10-13 01:10] LABS: Mucous, Urine 0 SEEN /hpf (<or=2+)
[2024-10-13 01:15] LABS: Color, Urine Yellow (Yellow); Glucose, Dipstick Normal (Normal); Ketone-Dipstick Negative (Negative); Leukocyte Esterase-Dipstick Negative /ul (Negative); Nitrite-Dipstick Negative (Negative); Occult Blood-Urine 25 /ul (Negative); Protein-Dipstick 15 mg/dl (Negative); Urine Bilirubin Dipstick Negative (Negative); Urine Clarity Clear (Clear); Urine Urobilinogen Normal (Normal)
[2024-10-13 01:29] LABS: Bacteria RARE /hpf (None Seen); Red Blood Cells-Urine 0-5 SEEN /hpf (0-5); Squamous Epithelial Cells - UA 0-5 SEEN /hpf (0-5); White Blood Cells 0-5 SEEN /hpf (0-5)
--- NOTE | 2024-10-13 01:44 | EX.ED.DYSGE1 ---
HPI History of Present Illness Chief Complaint: Flank Pain Informant: patient and spouse/S.O. Narrative Narrative: Patient is a 54-year-old male with history of rheumatoid arthritis and reported history of multiple kidney stones requiring intervention such as lithotripsy in the past. He states he developed increasing pain with bouts of nausea and vomiting on Friday. He reports on Friday he went to an outside hospital where he had blood work and a CT scan obtained. He reports that the scan showed a large 16 mm stone on the left. Based on the large size and his recurrent pain there was concern he may need intervention and was arranged for transport to [facility]. He states that he was in the hospital for multiple hours and there was no bed available and that upon shift change the oncoming doctor discharged home with pain medication. He states despite taking this there is been no improvement of his pain and his nausea has persisted. With concern that he will need intervention he presents for repeat evaluation [facility] Medical History Hyponatremia Anxiety Hepatitis B Rheumatoid arthritis Home Medications ?Medication ?Instructions ?Recorded ?Last Taken ?Type meloxicam 15 mg tablet 15 mg PO DAILY 03/10/23 Unknown History ondansetron 4 mg disintegrating 4 mg PO Q8H PRN PRN nausea/vomiting 10/13/24 Unknown History tablet oxycodone-acetaminophen 5 mg-325 1 tab PO 4X/DAY PRN PRN pain 10/13/24 Unknown History mg tablet sildenafil 100 mg tablet 100 - 200 mg PO DAILY PRN erectile 10/13/24 Unknown History dysfunction Allergy/AdvReac Type Severity Reaction Status Date / Time No Known Allergies Allergy Verified 10/12/24 23:08 Family History Mother Cancer ovarian Grandmother Cancer leukemia Rheumatoid arthritis Surgical History H/O elbow surgery H/O hernia repair H/O lithotripsy Social History Smoking Status: Current every day smoker tobacco type: cigarettes alcohol intake: never substance use type: marijuana ROS ROS ED Constitutional Constitutional ED: Denies chills or fever(s) Eyes Eyes: Denies change in vision ENT ENT ED: Denies sore throat Cardiovascular Cardiovascular: Denies chest pain Respiratory/Chest Respiratory/Chest: Denies cough or dyspnea Gastrointestinal Gastrointestinal: Reports abdominal pain, nausea and vomiting; Denies diarrhea Genitourinary Genitourinary ED: Reports hematuria; Denies dysuria Musculoskeletal Musculoskeletal: Reports back pain Integumentary Denies rash Neurologic Neurologic: Denies headache(s) Hematologic/Lymphatic Hematologic/Lymphatic: Denies easy bleeding or easy bruising EXAM Physical Exam Const Vital Signs: 10/12/24 23:07 10/13/24 00:00 10/13/24 01:40 Temperature 97.8 F Temperature Source Oral Pulse Rate 62 97 78 Respiratory Rate 16 16 18 Blood Pressure 154/86 H 128/82 H 117/80 Blood Pressure Mean 108 97 92 Pulse Ox 98 100 98 Oxygen Delivery Method Room Air Room Air 10/13/24 01:59 Temperature 97.8 F Temperature Source Pulse Rate 68 Respiratory Rate 16 Blood Pressure 124/88 H Blood Pressure Mean 100 Pulse Ox 100 Oxygen Delivery Method Positive well nourished and well developed General Appearance ED: well developed; Negative for pallor HEENT HEENT Narrative: Normocephalic atraumatic Eyes PERRL and EOMs intact bilaterally General Eye ED: Negative for scleral icterus Neck supple Neck Narrative: No nuchal rigidity or meningeal signs Resp normal respiratory effort and clear to auscultation bilaterally Cardio regular rate and regular rhythm Rate: other Other Details: Radial and carotid pulses are equal and symmetric GI non-distended and no masses GI Narrative: Abdomen is soft and nondistended with hypoactive bowel sounds. There is pain on palpation along the left lateral abdomen without voluntary guarding or rigidity. No pulsatile mass or fluid wave Auscultation: hypoactive bowel sounds Palpation: soft Back/Spine Back/Spine Narrative: Positive left CVA pain present Extremity normal to inspection Neuro oriented x3, CN's II-XII intact bilaterally and no sensory deficits noted Sensorium / Orientation: alert Sensory Exam: sensory level loss detected Psych mental status grossly normal Skin no rashes or lesions noted and no wounds General Skin Exam: Negative for jaundice or pallor MDM MDM MDM Narrative Medical decision making narrative: Patient arrived to the ER slightly hypertensive but otherwise with stable vitals. He was just recently worked up as an outpatient and has imaging showing a large stone on the left with hydroureteronephrosis. Based on his past medical history of recurrent stones requiring intervention and his intractable pain there is concern that he will need admitted for intervention. Basic labs were obtained as well as urine sample to rule out acute kidney injury or urosepsis. Labs revealed no clinically significant findings. Patient did require multiple doses of Dilaudid for improved pain relief. His CT report from the outpatient facility was reviewed and this correlates with his physical exam and history of present illness. Therefore at this time as he has intractable pain will most likely require intervention I did discuss the case with urologist Dr. Bowens. He agrees to accept the patient for continued care and potential intervention and therefore he will be admitted to the medical floor for further treatment History & Record Review Discussion w/independent historian: Patient and Significant other Lab Data Attestation: I reviewed the patient's lab results. Labs: Laboratory Results - last 24 hr 10/13/24 10/13/24 00:06 01:07 WBC 9.9 RBC 4.65 Hgb 12.9 L Hct 39.4 L MCV 84.7 MCH 27.7 MCHC 32.7 RDW Std Deviation 42.6 RDW Coeff of Becca 13.7 Plt Count 202 MPV 11.6 Immature Gran % (Auto) 0.600 Neut % (Auto) 71.3 H Lymph % (Auto) 17.5 L [place] % (Auto) 8.1 Eos % (Auto) 2.1 Baso % (Auto) 0.4 Absolute Neuts (auto) 7.1 Absolute Lymphs (auto) 1.73 Nucleated RBC % 0 Sodium 138 Potassium 4.6 Chloride 104 Carbon Dioxide 23.6 Anion Gap 10 BUN 25 H Creatinine 1.00 Estim Creat Clear Calc 99.95 Est GFR (MDRD) Non-Af 91 BUN/Creatinine Ratio 24.8 H Glucose 112 H Calcium 9.5 Urine Color Yellow Urine Clarity Clear Urine pH 7.0 Ur Specific [place] 1.010 Urine Protein 15 H Urine Glucose (UA) Normal Urine Ketones Negative Urine Occult Blood 25 H Urine Nitrite Negative Urine Bilirubin Negative Urine Urobilinogen Normal Ur Leukocyte Esterase Negative Urine RBC 0-5 SEEN Urine WBC 0-5 SEEN Ur Squamous Epith Cells 0-5 SEEN Urine Bacteria RARE Urine Mucus 0 SEEN Discharge Plan Dx/Rx/DC Orders Clinical Impression: Kidney stone, Renal colic, Hydronephrosis, Rheumatoid arthritis Disposition Disposition: Acute Care Hospital [facility] Discharge Date/Time: 10/13/24 02:27
[2024-10-13] MEDS: 0.9% Normal Saline (1000mL) 1,000 ML 50 ML IV (03:56)
[2024-10-13] MEDS: 0.9% Saline Lock 10 ML Syringe IV ×2 (03:57→04:31)
[2024-10-13] MEDS: Ketorolac 15 MG/ML Vial IV (04:30)
[2024-10-13 06:41] LABS: Absolute Lymphocyte Count 2.53 X10^3/uL (0.83-4.51); Absolute Neutrophil Count 5.9 X10^3/uL (2.0-7.7); Basophil# 0.05 X10^3/uL; Basophil% 0.5 % (0-1); Eosinophil# 0.26 X10^3/uL; Eosinophils% 2.7 % (0-5); Hematocrit 39.1 % (40-54); Hemoglobin 12.8 g/dL (13.0-16.5); Lymphocyte # 2.53 X10^3/ul (0.83-4.51); Lymphocyte % 26.4 % (19-41); Mean Corp Hgb Conc 32.7 g/dL (32-36); Mean Corpuscular Hgb 28.1 pg (27.0-32.0); Mean Corpuscular Volume 85.9 fL (80-94); Mean Platelet Vol. 10.6 fl (6.2-12.0); Monocyte# 0.78 X10^3/uL; Monocyte% 8.1 % (0-10); NRBC Flagged by Analyzer 0 % (0-5); Neutrophil # 5.94 X10^3/uL (2.7-7.7); Neutrophil % 61.9 % (47-70); Platelet Count 207 K/mm3 (150-450); RBC Distribution Width CV 13.5 % (11.6-14.6); RBC Distribution Width SD 42.6 fl (35.1-43.9); Red Blood Count 4.55 M/mm3 (4.6-6.2); White Blood Count 9.6 K/mm3 (4.4-11.0)
--- NOTE | 2024-10-13 06:53 | RAD_ITS ---
PROCEDURE: ABDOMEN SINGLE VIEW 10/13/2024 REASON FOR EXAM: STONE TECHNIQUE: Single view abdomen. FINDINGS: A 1 cm calcific density is seen to the left of L4, etiology of which is unclear. By location could be a ureteral stone although by size would be large though not excluded, clinically correlate. The bowel gas pattern appears within limits. A couple of incidental right pelvic phleboliths. Lower lumbar spondylosis suggested. RAD/Abdomen Single View IMPRESSION: A 1 cm calcific density is seen to the left of L4, etiology of which is unclear . By location could be a ureteral stone although by size would be large though not excluded, clinically correlate. Reading Location: [id number]
[2024-10-13 07:14] LABS: AST(SGOT) 18 U/L (<=37); Alanine Aminotransfer ALT/SGPT 11 U/L (<=46); Albumin, Serum 3.5 g/dL (3.5-5.0); Alkaline Phosphatase 41 U/L (40-129); Bilirubin, Direct 0.13 mg/dL (0.00-0.30); Globulin 2.2 g/dL (2.2-4.2); Protein, Total 5.7 g/dL (5.9-8.4); Total Bilirubin 0.26 mg/dL (0.00-1.30)
--- NOTE | 2024-10-13 07:31 | HP.PCM_ITS ---
HPI - General General Date of Admission: 10/13/24 Chief Complaint: Left flank pain HPI Narrative HAMILTON SOLIS, is a 54 M who presents to the hospital with severe left flank pain he had a stone in the mid left ureter seen on KUB. Also had a CAT scan done at [facility] I reports a small stone in the right kidney but not really visible on KUB the pain is on the left side he was admitted for pain control plan to take him to surgery today for cystoscopy ureteroscopy in the left side laser of the stone possible stent placement. [facility] Medical History Chronic pain Hyponatremia Anxiety Hepatitis B Rheumatoid arthritis Home Medications ?Medication ?Instructions ?Recorded ?Last Taken ?Type meloxicam 15 mg tablet 15 mg PO DAILY 03/10/23 Unkn own History acetaminophen 500 mg capsule 500 mg PO Q4H PRN pain #2 0 caps 10/13/24 Unknown Rx ibuprofen 600 mg tablet 600 mg PO Q6H PRN pain #20 t abs 10/13/24 Unknown Rx ondansetron 4 mg disintegrating 4 mg PO Q8H PRN PRN na usea/vomiting 10/13/24 Unknown History tablet oxycodone-acetaminophen 5 mg-325 1 tab PO 4X/DAY PRN P RN pain 10/13/24 Unknown History mg tablet sildenafil 100 mg tablet 100 - 200 mg PO DAILY PRN er ectile 10/13/24 Unknown History dysfunction Allergy/AdvReac Type Severity Reaction Status Date / Time No Known Allergies Allergy Verified 10/12/24 23:08 Family History Mother Cancer ovarian Grandmother Cancer leukemia Rheumatoid arthritis Surgical History History of appendectomy H/O elbow surgery H/O lithotripsy H/O hernia repair Social History Smoking Status: Current every day smoker tobacco type: cigarettes alcohol intake: never substance use type: marijuana ROS Constitutional Constitutional: Denies chills, fever(s) or malaise Eyes Eyes: Denies blurry vision or change in vision ENT HEENT: Reports none Cardiovascular Cardiovascular: Denies chest pain or palpitations Respiratory/Chest Respiratory/Chest: Denies cough or shortness of breath with exertion Gastrointestinal Gastrointestinal: Denies abdominal pain, constipation or diarrhea Musculoskeletal Musculoskeletal: Denies back pain, joint stiffness or joint swelling Integumentary Integumentary: Denies dry skin, jaundice, lesions or rash Neurologic Neurologic: Denies confusion, syncope or weakness Psychiatric Psychiatric: Reports none; Denies anxiety or depression Endocrine Endocrinology: Denies excessive sweating, fatigue or flushing Hematologic/Lymphatic Hematologic/Lymphatic: Denies anemia, easy bleeding or easy bruising Vital Signs Vital Signs Vital Signs: 10/12/24 23:07 10/13/24 00:00 10/13/24 01:40 Temperature 97.8 F Temperature Source Oral Pulse Rate 62 97 78 Respiratory Rate 16 16 18 Respiratory Effort Respiratory Depth Respiratory Pattern Blood Pressure 154/86 H 128/82 H 117/80 Blood Pressure Mean 108 97 92 Pulse Ox 98 100 98 Oxygen Delivery Method Room Air Room Air 10/13/24 01:59 10/13/24 02:51 10/13/24 03:09 Temperature 97.8 F 97.4 F L Temperature Source Temporal Pulse Rate 68 50 L Respiratory Rate 16 16 Respiratory Effort Normal Respiratory Depth Normal Respiratory Pattern Normal Blood Pressure 124/88 H 137/90 H Blood Pressure Mean 100 105 Pulse Ox 100 100 Oxygen Delivery Method Room Air Room Air Weight Weight: 94.6 kg Body Mass Index (BMI) 29.0 Physical Exam Const alert and oriented x3 General Appearance: cooperative HEENT normocephalic and head/scalp atraumatic Eyes PERRL and EOMs intact bilaterally Neck supple, no JVD and no carotid bruits Resp normal respiratory effort, normal air movement and clear to auscultation bilaterally Cardio regular rate and no murmurs GI normal to inspection, nondistended, normoactive bowel sounds and soft to palpation Extremity normal capillary refill General Extremity: no tenderness to palpation of joints or extremities; Negative for edema Skin no rashes or lesions noted and no wounds General Skin Exam: no breakdown Neuro CN's II-XII intact bilaterally Psych affect normal Appearance: appropriate Results Lab / Micro Data 10/13/24 05:56 10/13/24 00:06 Labs: Laboratory Results - last 24 hr 10/13/24 00:06: WBC 9.9, RBC 4.65, Hgb 12.9 L, Hct 39.4 L, MCV 84.7, MCH 27.7, MCHC 32.7, RDW Std Deviation 42.6, RDW Coeff of Becca 13.7, Plt Count 202, MPV 11.6, Immature Gran % (Auto) 0.600, Neut % (Auto) 71.3 H, Lymph % (Auto) 17.5 L, [place] % (Auto) 8.1, Eos % (Auto) 2.1, Baso % (Auto) 0.4, Absolute Neuts (auto) 7.1, Absolute Lymphs (auto) 1.73, Nucleated RBC % 0, Sodium 138, Potassium 4.6, Chloride 104, Carbon Dioxide 23.6, Anion Gap 10, BUN 25 H, Creatinine 1.00, Estim Creat Clear Calc 99.95, Est GFR (MDRD) Non-Af 91, BUN/Creatinine Ratio 24.8 H, Glucose 112 H, Calcium 9.5 10/13/24 01:07: Urine Color Yellow, Urine Clarity Clear, Urine pH 7.0, Ur Specific [place] 1.010, Urine Protein 15 H, Urine Glucose (UA) Normal, Urine Ketones Negative, Urine Occult Blood 25 H, Urine Nitrite Negative, Urine Bilirubin Negative, Urine Urobilinogen Normal, Ur Leukocyte Esterase Negative, Urine RBC 0-5 SEEN, Urine WBC 0-5 SEEN, Ur Squamous Epith Cells 0-5 SEEN, Urine Bacteria RARE, Urine Mucus 0 SEEN 10/13/24 05:56: WBC 9.6, RBC 4.55 L, Hgb 12.8 L, Hct 39.1 L, MCV 85.9, MCH 28.1, MCHC 32.7, RDW Std Deviation 42.6, RDW Coeff of Becca 13.5, Plt Count 207, MPV 10.6, Immature Gran % (Auto) 0.400, Neut % (Auto) 61.9, Lymph % (Auto) 26.4, [place] % (Auto) 8.1, Eos % (Auto) 2.7, Baso % (Auto) 0.5, Absolute Neuts (auto) 5.9, Absolute Lymphs (auto) 2.53, Nucleated RBC % 0, Total Bilirubin 0.26, Direct Bilirubin 0.13, AST 18, ALT 11, Alkaline Phosphatase 41, Total Protein 5.7 L, Albumin 3.5, Globulin 2.2 Assessment & Plan Assessment/Plan (1) Renal colic: (2) Kidney stone: PLAN: Admitted for pain control plan to take him to surgery today to laser the stone on the left kidney
--- NOTE | 2024-10-13 07:33 | DCINST_ITS ---
Discharge Instructions Diet Discharge Diet: No restrictions DC O2, CPAP, BIPAP needs Home O2 Discharge instructions: No Dressing / Incision Discharge Activity: Return to Normal Activity and May Not Drive (while taking narcotic pain medications.) Dressing / Incision Call your doctor if you observe: Fever of 101 or Higher Follow Up Care Please Follow Up With: Bert Bowens MD When: Call [phone] for an appointment Test Results: Test results from this visit will be discussed in further detail at your follow- up appointment, if applicable. Discharge Plan Admission Admit Date/Time: 10/13/24 03:25 Primary Reason for Your Visit: Laser of left ureteral stone Attending Provider: Bert Bowens Primary Care Provider: Didier Simpson Discharge Orders/Prescriptions Prescriptions: New ibuprofen 600 mg tablet 600 mg PO Q6H PRN (Reason: pain) Qty: 20 0RF acetaminophen 500 mg capsule 500 mg PO Q4H PRN (Reason: pain) Qty: 20 0RF Continued meloxicam 15 mg tablet 15 mg PO DAILY Patient Comments: TAKE 1 TABLET BY MOUTH ONCE DAILY WITH FOOD sildenafil 100 mg tablet 100 - 200 mg PO DAILY PRN (Reason: erectile dysfunction) ondansetron 4 mg tablet,disintegrating 4 mg PO Q8H PRN PRN (Reason: nausea/vomiting) oxycodone-acetaminophen 5-325 mg tablet 1 tab PO 4X/DAY PRN PRN (Reason: pain) Referrals / Follow Up: Bert Bowens MD [Med Staff - Active Staff] - Didier Simpson MD [Primary Care Provider] - Disposition Disposition (needs filled in before D/C Order can be placed): Home, Self Care
--- NOTE | 2024-10-13 11:04 | PRE.ANES_ITS ---
ASA Classification* ASA Classification ASA Classification: 3 (Hyponatremia, RA. (+) Tobacco use, (+) Alcohol use, (+) THC use. Consider a small amount of precedex if BPs tolerate (10-15 mcg)) Assessment & Plan Anesthesia* Anesthesia Assessment Anesthesia Assessment: Discussed sedation and/or anesthesia options, risks, benefits, and alternatives with patient/parents/legal guardian/POA. Questions invited. The patient/parents/legal guardian/POA seems to understand and agrees to proceed with anesthesia plan. Reviewed the physical assessment, medical history, allergy history and patient home medications list prior to surgery/procedure/anesthetic and documented any changes. Performed airway and anesthesia risk assessments. HAMILTON SOLIS, is a 54 M who presents to the hospital with severe left flank pain he had a stone in the mid left ureter seen on KUB. Also had a CAT scan done at [facility] I reports a small stone in the right kidney but not really visible on KUB the pain is on the left side he was admitted for pain control plan to take him to surgery today for cystoscopy ureteroscopy in the left side laser of the stone possible stent placement. Anesthesia Type Anesthesia Type: General History Source History Obtained from:: Patient and Chart Anesthesia Focused Assessment* Temperature: 97.4 F Pulse Rate: 50 Blood Pressure: 137/90 Respiratory Rate: 16 Pulse Ox: 100 Airway Assessment Mouth opens: >3 cm Mallampati Score: II Teeth Condition: Missing (edenetulous) Neck Range of motion (ROM): Full ROM Focused Labs Anesthesia Preop lab: CBC WBC 9.6 K/mm3 (4.4-11.0) 10/13/24 05:56 10/13/24 RBC 4.55 M/mm3 (4.6-6.2) L 10/13/24 05:56 10/13/24 Hgb 12.8 g/dL (13.0-16.5) L 10/13/24 05:56 5 Hct 39.1 % (40-54) L 10/13/24 05:56 10/13/24 Plt Count 207 K/mm3 (150-450) 10/13/24 05:56 10/13/24 CHEMISTRY Potassium 4.6 mmol/L (3.3-5.1) 10/13/24 00:06 10/13/24 Sodium 138 mmol/L (133-145) 10/13/24 00:06 10/13/24 BUN 25 mg/dL (4-19) H 10/13/24 00:06 10/13/24 Creatinine 1.00 mg/dL (0.70-1.20) 10/13/24 00:06 10/13/24 Glucose 112 mg/dL (70-99) H 10/13/24 00:06 10/13/24 COAG PT 12.9 SECONDS (11.7-14.9) 06/26/22 18:50 Pre-Assessment Diagnosis/Proposed Procedure Planned Operative Procedure(s): Cysto stent; see urology notes Anesthesia History 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 When Was Last Pacemaker Check none 10/13/24 10:36 QUESTION #4 FULL TEXT: You/Your Family Experience fever (hyperthermia) with Anesthesia Last Oral Intake Last Oral intake: Last Oral Intake NPO since Meds taken in AM with sips of water? Meds patient instructed to take am of surgery PONV PONV - river transportation worker: PONV - river transportation worker Female HX of Motion Sickness HX of N/V After Surgery Non-Smoker Duration of Surgery greater than 60 minutes Number of Risk Factors PONV Score Height & Weight Height & Weight: Anesthesia: Height & Weight Height 5 ft 11 in 10/13/24 02:52 Weight: 94.6 kg 10/13/24 02:52 Body Mass Index (BMI) 29.0 10/13/24 02:52 Respiratory Assessment Respiratory Assessment - river transportation worker: Respiratory Tract Infection Hx - river transportation worker Hx Respiratory Tract Infection No 10/13/24 10:36 STOP Sleep Apnea STOP Sleep Apnea - river transportation worker: STOP Sleep Apnea - river transportation worker Hx Hypertension No 10/13/24 02:55 Hx Sleep Apnea No 10/13/24 02:55 CPAP BIPAP Do you snore loudly (louder No 10/13/24 02:55 than talking or can be heard Do you often feel tired/ No 10/13/24 02:55 fatigued/ sleepy during daytime? Has anyone observed you stop No 10/13/24 02:55 breathing during sleep? STOP Results Negative 10/13/24 02:55 QUESTION #5 FULL TEXT : Do you snore loudly (louder than talking or can be heard through closed doors)? Tobacco Use History Tobacco Use History - river transportation worker: Tobacco Use History - river transportation worker Tobacco Use Smoking Status Current every day smoker 10/13/24 02:55 Hx Tobacco Use Yes 10/13/24 02:55 Years Smoking 30 10/13/24 02:55 Packs Smoked per Day 1 10/13/24 02:55 Smoking Cessation Date was within the last 15 years Hx Smoking Cessation Date Hx Smoking Cessation Counseling Hematologic Medial History Hematologic Hx - river transportation worker: Hematologic Medical Hx - clinical documentation consultant Hx of Blood Transfusion No 10/13/24 02:55 Hx of Transfusion in last 3 No 10/13/24 02:55 Months Date of Last Transfusion (if within last 3 months) Ever experience any problems No 10/13/24 02:55 with transfusion(s)? Specify any problems Hx of Preganancy in last 3 N/A 10/13/24 02:55 Months Nurse Filling Out Transfusion [id number] 10/13/24 02:55 & Questions: Date: 10/13/24 10/13/24 02:55 Time: 02:56 10/13/24 02:55 Patient unable to answer at this time (ie. confused, unrespo /Reproduction History /Reproductive History - river transportation worker: /Reproductive Hx- river transportation worker Hx Now No 10/13/24 10:36 Gestational Age (in weeks): EDC: Hx Hx Para Hx Section SAB No 10/13/24 10:36 Active Medications Active Medications: Current Medications Generic Name Dose Route Start Last Admin Trade Name Freq PRN Reason Stop Dose Admin Sodium Chloride 250 mls @ 15 mls/hr 10/13/24 02:47 IV .[id number] PRN Additional IVPB Infusion Sodium Chloride 1,000 mls @ 50 mls/hr 10/13/24 03:25 10/13/24 03:56 IV 50 mls/hr .Q20H MISBAH Administration Ketorolac Tromethamine 15 mg 10/13/24 03:25 10/13/24 04:30 Ketorolac 15 Mg/Ml Vial IV 10/18/24 03:26 15 mg Q6H PRN PRN Administration Pain Score 1-10 Morphine Sulfate 2 mg 10/13/24 03:25 Morphine 2 Mg/Ml Syringe IV Q4H PRN PRN Pain Score 6-10 Ondansetron HCl 4 mg 10/13/24 03:30 Ondansetron 4 Mg/2 Ml Vial IV Q6H PRN PRN NAUSEA/VOMITING Sodium Chloride 10 - 40 ml 10/13/24 02:47 10/13/24 04:31 0.9% Saline Lock 10 Ml Syringe IV 10 ml UD PRN Administration SALINE FLUSH PFSH Medical History Chronic pain Hyponatremia Anxiety Hepatitis B Rheumatoid arthritis Home Medications ?Medication ?Instructions ?Recorded ?Last Taken ?Type meloxicam 15 mg tablet 15 mg PO DAILY 03/10/23 Unkn own History acetaminophen 500 mg capsule 500 mg PO Q4H PRN pain #2 0 caps 10/13/24 Unknown Rx ibuprofen 600 mg tablet 600 mg PO Q6H PRN pain #20 t abs 10/13/24 Unknown Rx ondansetron 4 mg disintegrating 4 mg PO Q8H PRN PRN na usea/vomiting 10/13/24 Unknown History tablet oxycodone-acetaminophen 5 mg-325 1 tab PO 4X/DAY PRN P RN pain 10/13/24 Unknown History mg tablet sildenafil 100 mg tablet 100 - 200 mg PO DAILY PRN er ectile 10/13/24 Unknown History dysfunction Allergy/AdvReac Type Severity Reaction Status Date / Time No Known Allergies Allergy Verified 10/12/24 23:08 Family History Mother Cancer ovarian Grandmother Cancer leukemia Rheumatoid arthritis Surgical History History of appendectomy H/O elbow surgery H/O lithotripsy H/O hernia repair Social History Smoking Status: Current every day smoker tobacco type: cigarettes alcohol intake: never substance use type: marijuana Review of Systems (Anesthesia) ROS Narrative System reviewed and no additional complaints, except as documented. Physical Exam Const alert, oriented x3 and average body habitus Resp normal respiratory effort, normal air movement and clear to auscultation bilaterally Cardio regular rate, regular rhythm, no murmurs and diaphoretic
--- NOTE | 2024-10-13 11:12 | NURSING ---
Informed this am that pt would go to OR @ [id number] OR staff here @ 1100 to take pt-they are aware that pt has not been prepped as is protocol-
[2024-10-13] MEDS: Cefazolin 2 GM in 0.9% Normal Saline (100mL Bag) 100 ML IV (11:25)
--- NOTE | 2024-10-13 11:49 | NURSING ---
none of pt oral meds are here for administration-Rx made aware to send
--- NOTE | 2024-10-13 12:20 | PCM.OPRPT ---
Operative Report (Standard) Operative Information Date of Procedure: 10/13/24 Pre-Operative Diagnosis: Right large obstructive ureteral calculi impacted Post-Operative Diagnosis: The same Surgery/Procedure Performed: Cystoscopy right ureteroscopy laser lithotripsy of stone, no stent cutch cleaner: No Type of Anesthesia: General RN Documented Start/Stop Times: Operation Date: 10/13/24 15:30 Case Time Into Pre-Op 10/13/24 11:02 Anesthesia Start 10/13/24 11:15 Into Room 10/13/24 11:15 Out of Pre-Op 10/13/24 11:15 Procedure Start 10/13/24 11:26 Procedure Start Time: 11:26 Procedure Stop Time: 12:20 Select all DRAINS/GRAFTS/IMPLANTS that apply: None Estimated Blood Loss: None Specimen collected: No Description of surgery: Indication this is a 54-year-old male presents to [facility] with severe left renal colic CAT scan was done and x-ray was done to confirm he has a large stone in the proximal left ureter causing obstruction and severe hydronephrosis today we plan to proceed with right ureteroscopy laser lithotripsy of the stone Patient was taken back to the operating room after smooth induction of anesthesia he was placed in dorsolithotomy position. The penis and testicles were prepped and draped in usual sterile fashion went into the bladder with a flexible ureteroscope was able to get into the bladder identified the trigone with the ureteroscope with no tumors or stones seen within the bladder I then used the ureteroscope and was able to get into the ureter on the left side and then went went up the left ureter with the ureteroscope I then encountered a large stone that was impacted in the proximal left ureter I then used 150 ?m laser fiber and a thulium fiber and proceeded with laser lithotripsy first lasered in the middle of the stone to carve out a channel in the middle and then slowly started lasering the stone from the middle to the edges and eventually the stone came off the ureter wall and eventually collapsed into the middle and then continue to lasering the stone then finally the stone fragments migrated up into the kidney I worked my way down the ureter there are multiple fragments that are passing I pulled the ureteroscope all the way out we put a 12 [place]er catheter in the bladder drained the bladder out this facilitated passage of more stones in the ureter I then went back up the ureter encountered the more stones in the kidney lasered these completely and then I worked my way down the ureter and then did not see any other major stone fragments in the kidney or along the course of the ureter basically at dusted all the fragments using the thulium laser. So at this point then the ureteroscope was removed I used a straight 12 [place] red rubber catheter to drain the bladder this was then removed patient's anesthetic is currently being reversed no stent was placed and we will see him back for follow-up in the office in 4 weeks for checkup and ultrasound of his kidney.. Surgical Findings: Large stone lasered completely. No stent Complications Complications: No Admit VTE Documentation VTE Present on Admission: No VTE Mechan Device Prophylaxis: SCD's VTE Pharm Prophylaxis ordered?: No
--- NOTE | 2024-10-13 12:44 | PCM.POST.ANE ---
Anesthesia: Postop Eval I Current Vital Signs Temperature: 97.3 F Pulse Rate: 45 Blood Pressure: 118/101 Respiratory Rate: 14 Pulse Ox: 98 Oxygen Delivery Method: Simple Mask Assessment Airway patent: Yes Spontaneous unlabored respirations: Yes Mental status: Awake nausea: No Vomiting: No Anesthesia Complication: No Fluid Hydration Crystalloid volume administer (ml): 1,000 Total IV fluid infused: 1,000 Progress Note Anesthesia document: Postop Eval 1 completed: Yes
--- NOTE | 2024-10-13 14:14 | POSTOPAN2_ITS ---
Anesthesia Postop Eval I Sum Postop Eval Completion status Anesthesia document: Postop Eval 1 completed: Yes Anesthesia Postop Eval I Summary Anesthesia Postop Eval I Summary: Anesthesia Postop Eval I: Assessment Summary Airway patent Yes 10/13/24 12:44 [email or web address] [email or web address] Spontaneous unlabored Yes 10/13/24 12:44 CHARGE [email or web address] respirations Mental status Awake 10/13/24 12:44 CHARGE [email or web address] nausea No 10/13/24 12:44 CHARGE [email or web address] Vomiting No 10/13/24 12:44 CHARGE [email or web address] Anesthesia Postop Eval I: Fluid Summary Crystalloid volume administer 1,000 10/13/24 12:44 CHARGE [email or web address] (ml) Colloids volume administered ( ml) Blood Product volume administered (ml) Total IV fluid infused 1,000 10/13/24 12:44 CHARGE [email or web address] Anesthesia Postop Eval I: Summary Notes Anesthesia Complication No 10/13/24 12:44 CHARGE [email or web address] Anesthesia Complication Comment: Post-operative progress note Anesthesia: Postop Eval II Evaluation Mental status: Awake Pain Level: 0 nausea: No Vomiting: No Complications Anesthesia Complication: No
--- NOTE | 2024-10-13 14:14 | PCM.POSTANE2 ---
Anesthesia Postop Eval I Sum Postop Eval Completion status Anesthesia document: Postop Eval 1 completed: Yes Anesthesia Postop Eval I Summary Anesthesia Postop Eval I Summary: Anesthesia Postop Eval I: Assessment Summary Airway patent Yes 10/13/24 12:44 [email or web address] Spontaneous unlabored Yes 10/13/24 12:44 [email or web address] respirations Mental status Awake 10/13/24 12:44 [email or web address] nausea No 10/13/24 12:44 [email or web address] Vomiting No 10/13/24 12:44 [email or web address] Anesthesia Postop Eval I: Fluid Summary Crystalloid volume administer 1,000 10/13/24 12:44 [email or web address] (ml) Colloids volume administered ( ml) Blood Product volume administered (ml) Total IV fluid infused 1,000 10/13/24 12:44 [email or web address] Anesthesia Postop Eval I: Summary Notes Anesthesia Complication No 10/13/24 12:44 [email or web address] Anesthesia Complication Comment: Post-operative progress note Anesthesia: Postop Eval II Evaluation Mental status: Awake Pain Level: 0 nausea: No Vomiting: No Complications Anesthesia Complication: No
== END 2024-10-13 16:23 | disposition home or self-care (01) ==
LOC: ED 10-13 01:55 → MS3 10-13 05:14
PROVIDERS: Student in an Organized Health Care Education/Training Program; Admitting Provider Urology; Emergency Provider Emergency Medicine; PCP Internal Medicine; Visit Provider Urology
PROC: 0TJ98ZZ Inspection of Ureter, Via Natural or Artificial Opening Endoscopic (ICD-10-PCS; CPT 52352; principal; 2024-10-13 15:20)
DX: N13.2 Hydronephrosis with renal and ureteral calculous obstruction (principal); M06.9 Rheumatoid arthritis, unspecified; Z79.1 Long term (current) use of non-steroidal anti-inflammatories (NSAID); N23 Unspecified renal colic; F17.210 Nicotine dependence, cigarettes, uncomplicated; F12.90 Cannabis use, unspecified, uncomplicated
CPT/HCPCS: 52353; 36415; 74018; 80048; 80076; 81001; 85025; 93005; 96374; 96375; 96376; 99221; 99284; 99406; A4216; C1769; G0378; J2405

== ENCOUNTER 2025-04-19 10:29 | Emergency (ER) | payer OTHER, SELFPAY ==
[2025-04-19 10:30] VITALS: BP 147/99; PULSE 64; RESP 16; TEMP 36.4; O2SAT 98; BMI 29.5
[2025-04-19] MEDS: 0.9% Normal Saline (1000mL) 1,000 ML 999 ML IV (11:08)
--- NOTE | 2025-04-19 11:14 | CT_ITS ---
PROCEDURE: ABDOMEN/PELVIS W IV CONT ONLY 04/19/2025 REASON FOR EXAM: HX OF KIDNEY STONES, ABD PAIN TECHNIQUE: Procedure Code: [id number] Modality: CT Procedure: ABDOMEN/PELVIS W IV CONT ONLY Coronal and Sagittal reconstruction series were provided. CONTRAST: Isovue-300 VOLUME: 94 mL One or more dose reduction techniques were used (e.g., Automated exposure control, adjustment of the mA and/or kV according to patient size, use of iterative reconstruction technique. RADIATION DOSE SUMMARY: CTDlvol: 31 mGy DLP: 995 mGycm COMPARISON: October 11, 2024 (report unavailable), March 10, 2023 FINDINGS: Lung bases: Clear Liver: Normal Gallbladder: Normal Spleen: Normal Pancreas: Normal Adrenals: Normal Kidneys: No collecting system dilation. A 5 x 3 mm calculus is seen in the left midpole. Right lower pole renal calculus no longer seen. Bladder: Normal Reproductive Organs: Normal-size. Dystrophic calcification central lobe. Bowel: Stomach is normal. Small bowel is normal. Colon appears unremarkable except for a few scattered colonic diverticula. No diverticulitis. Appendix: Normal Lymph nodes: None appear enlarged Vasculature: Mild atherosclerotic plaque without aneurysm. Peritoneum / Retroperitoneum: No free air, free fluid or mass. Bones: Mild lower lumbar facet hypertrophy. CT/Abdomen/Pelvis W IV Cont ONLY IMPRESSION: Nonobstructing left renal calculus. Reading Location: [facility]
--- NOTE | 2025-04-19 11:21 | EDS_ITS ---
HPI History of Present Illness Chief Complaint: Flank Pain Narrative Narrative: Patient is a 54-year-old male with a past medical history of hyponatremia, anxiety, hepatitis B, rheumatoid arthritis who presents to the emergency department with a chief complaint of back pain and "kidney pain". He states that this been going on for a few days now and states that this has been progressively worsening prompting him here. He states that he is also had abdominal pain nausea vomiting diarrhea and just not feeling well overall. PFSH PFSH Medical History Chronic pain Hyponatremia Anxiety Hepatitis B Rheumatoid arthritis Home Medications Medication Instructions Recorded Last Taken Type acetaminophen 500 mg capsule 500 mg PO Q4H PRN pain #2 0 caps 10/13/24 Unknown Rx ibuprofen 600 mg tablet 600 mg PO Q6H PRN pain #20 t abs 10/13/24 Unknown Rx sildenafil 100 mg tablet 100 - 200 mg PO DAILY PRN er ectile 10/13/24 Unknown History dysfunction cyclobenzaprine 10 mg tablet 10 mg PO TID PRN muscle s pasm #20 04/19/25 Unknown Rx tabs Allergy/AdvReac Type Severity Reaction Status Date / Time No Known Allergies Allergy Verified 04/19/25 10:30 Family History Mother Cancer ovarian Grandmother Cancer leukemia Rheumatoid arthritis Surgical History History of appendectomy H/O elbow surgery H/O lithotripsy H/O hernia repair Social History Smoking Status: Current every day smoker tobacco type: cigarettes alcohol intake: never substance use type: marijuana ROS ROS ED ROS Narrative Constitutional: Complains of chills denies any fevers, headaches Eyes: Denies double vision Cardiovascular: Denies chest pain Respiratory: Denies coughing wheezing shortness of breath Abdomen: Complains abdominal pain nausea vomit diarrhea as noted above : Denies any painful urination, hematuria Neurological: Denies any numbness, weakness, tingling Musculoskeletal: Complains of back pain as noted above from his kidneys Skin: Denies any rashes or lesions EXAM Physical Exam Narrative Exam Narrative: General: Patient was lying in bed rest comfortably did not appear to be in acute distress Head: Atraumatic, normocephalic Eyes: PERRL bilaterally, EOMI bilateral, no conjunctival injection noted Neck: Soft, supple, trachea midline Cardiovascular: Regular rate and rhythm Respiratory: Clear to auscultation bilaterally Abdomen: Soft, nondistended, diffuse tenderness to palpation no rebound or gua rding on exam Musculoskeletal: No tenderness palpation midline of the thoracic lumbar spine, Extremities: +5/5 strength noted in the bilateral lower extremities Neurological: Patient following commands knew that he was at [facility] years 2024 Skin: Warm, dry, intact no rashes or lesions noted Const Vital Signs: 04/19/25 10:30 04/19/25 12:30 Temperature 97.5 F L Temperature Source Oral Pulse Rate 64 49 L Respiratory Rate 16 20 H Blood Pressure 147/99 H 115/64 Blood Pressure Mean 115 81 Pulse Ox 98 97 MDM MDM MDM Narrative Medical decision making narrative: Patient is a 54-year-old male who presented to the emergency department with a chief complaint of abdominal pain, nausea, vomiting, diarrhea and back pain. On the differential diagnosis includes but not limited to UTI, pyelonephritis, urolithiasis, AAA, viral gastroenteritis. Once workup is obtained reviewed he will be reevaluated. Patient be given IV fluids. Patient's CBC reviewed and showed no evidence leukocytosis white blood count 9.5, heme was 16.2, plate count normal at 240. Patient sodium is 137, potassium of 4.5, creatinine 0.84. Patient AST and ALT are 16 and 10 respectively total bilirubin was normal at 0.36. Patient lipase normal at 39, urinalysis reviewed and showed no evidence of infection. Patient CT ab pelvis with IV contrast reviewed and showed a nonobstructing left renal calculus. Discussed results with the patient he would like to go home at this point in time. He was advised to follow-up with his doctors in outpatient setting and return with worsening symptoms or any concerns. Patient will be given prescription for muscle relaxer cyclobenzaprine and he is advised that he needs to rotate Tylenol and ibuprofen [id number] for pain control and do not operate anything under the influence of the muscle relaxer as it will make him sleepy and drowsy. He is requesting work note which she was given. They are encouraged to return if worsening symptoms or any concerns. All course concerns answered is discharged home in stable condition Lab Data Labs: Laboratory Results - last 24 hr 04/19/25 11:10 WBC 9.5 RBC 5.86 Hgb 16.2 Hct 49.1 MCV 83.8 MCH 27.6 MCHC 33.0 RDW Std Deviation 41.1 RDW Coeff of Becca 13.2 Plt Count 240 MPV 10.3 Immature Gran % (Auto) 1.000 H Neut % (Auto) 71.4 H Lymph % (Auto) 17.4 L Terrell % (Auto) 7.5 Eos % (Auto) 1.9 Baso % (Auto) 0.8 Absolute Neuts (auto) 6.8 Absolute Lymphs (auto) 1.66 Nucleated RBC % 0 Sodium 137 Potassium 4.5 Chloride 103 Carbon Dioxide 23.6 Anion Gap 10 BUN 18 Creatinine 0.84 Estim Creat Clear Calc 121.68 Est GFR (MDRD) Non-Af 105 BUN/Creatinine Ratio 21.5 H Glucose 98 Calcium 9.6 Total Bilirubin 0.36 AST 16 ALT 10 Alkaline Phosphatase 47 Total Protein 6.3 Albumin 4.4 Globulin 1.9 L Albumin/Globulin Ratio 2.3 Lipase 39 Urine Color Yellow Urine Clarity Clear Urine pH 7.0 Ur Specific [place] 1.015 Urine Protein 15 H Urine Glucose (UA) Normal Urine Ketones Negative Urine Occult Blood Negative Urine Nitrite Negative Urine Bilirubin Negative Urine Urobilinogen Normal Ur Leukocyte Esterase Negative Urine RBC 0 SEEN Urine WBC 0 SEEN Ur Squamous Epith Cells 0-5 SEEN Urine Bacteria 0 SEEN Urine Mucus 0 SEEN Radiography Diagnostic Testing: Clinical Impression(s) from Imaging Studies Abdomen/Pelvis CT 04/19/25 11:14 IMPRESSION: Nonobstructing left renal calculus. Reading Location: [id number] Discharge Plan Triage Chief Complaint: Flank Pain ED Provider: Radhames Sanchez Dx/Rx/DC Orders Clinical Impression: Back pain, History of kidney stones, Rheumatoid arthritis Prescriptions: New cyclobenzaprine 10 mg tablet 10 mg PO TID PRN (Reason: muscle spasm) Qty: 20 0RF No Action sildenafil 100 mg tablet 100 - 200 mg PO DAILY PRN (Reason: erectile dysfunction) ibuprofen 600 mg tablet 600 mg PO Q6H PRN (Reason: pain) Qty: 20 0RF acetaminophen 500 mg capsule 500 mg PO Q4H PRN (Reason: pain) Qty: 20 0RF Primary Care Provider: Didier Simpson Referrals: Didier Simpson MD [Primary Care Provider, Internal Medicine] Activity Restrictions/Additional Instructions: Your blood work did not show any acute findings here today your CT did not show any surgical findings. Rotate Tylenol and ibuprofen [id number] when you do this you can take something every 3 hours for pain max dose of Tylenol in 24 hours is 4000 mg max dose of ibuprofen in 24 hours is 3200 mg. Use muscle relaxers as prescribed do not operate anything in any influence this medication as will make you sleepy and drowsy. Return with worsening symptoms or other concerns Print Language: Estonian Disposition Disposition: Home, Self Care
[2025-04-19 11:23] LABS: Mucous, Urine 0 SEEN /hpf (<or=2+); Red Blood Cells-Urine 0 SEEN /hpf (0-5)
[2025-04-19 11:25] LABS: Color, Urine Yellow (Yellow); Glucose, Dipstick Normal (Normal); Hematocrit 49.1 % (40-54); Hemoglobin 16.2 g/dL (13.0-16.5); Immature Granulocytes Count 0.100 X10^3/uL (0.0-0.0); Ketone-Dipstick Negative (Negative); Leukocyte Esterase-Dipstick Negative /ul (Negative); Mean Corp Hgb Conc 33.0 g/dL (32-36); Mean Corpuscular Volume 83.8 fL (80-94); Mean Platelet Vol. 10.3 fl (6.2-12.0); NRBC Flagged by Analyzer 0 % (0-5); Nitrite-Dipstick Negative (Negative); Occult Blood-Urine Negative /ul (Negative); Platelet Count 240 K/mm3 (150-450); Protein-Dipstick 15 mg/dl (Negative); RBC Distribution Width CV 13.2 % (11.6-14.6); RBC Distribution Width SD 41.1 fl (35.1-43.9); Red Blood Count 5.86 M/mm3 (4.6-6.2); Specific Gravity, Urine 1.015 (1.002-1.030); Urine Bilirubin Dipstick Negative (Negative); White Blood Count 9.5 K/mm3 (4.4-11.0)
[2025-04-19 11:30] LABS: Squamous Epithelial Cells - UA 0-5 SEEN /hpf (0-5)
[2025-04-19 11:56] LABS: AST(SGOT) 16 U/L (<=37); Alanine Aminotransfer ALT/SGPT 10 U/L (<=46); Albumin, Serum 4.4 g/dL (3.5-5.0); Alkaline Phosphatase 47 U/L (40-129); Anion Gap 10 (5-15); BUN 18 mg/dL (4-19); BUN/Creat Ratio 21.5 RATIO (10-20); Calcium,Total 9.6 mg/dL (7.6-11.0); Carbon Dioxide 23.6 mmol/L (21.0-32.0); Chloride 103 mmol/L (98-108); Estimated Creatinine Clearance 121.68 ml/min (50-250); Globulin 1.9 g/dL (2.2-4.2); Glucose 98 mg/dL (70-99); Lipase 39 U/L (13-75); Potassium 4.5 mmol/L (3.3-5.1)
[2025-04-19 12:30] VITALS: BP 115/64; PULSE 49; RESP 20; O2SAT 97
[2025-04-19 13:17] VITALS: BP 113/76; PULSE 52; RESP 18; TEMP 36.8; O2SAT 97
== END 2025-04-19 13:25 | disposition home or self-care (01) ==
PROVIDERS: Emergency Provider Emergency Medicine; PCP Internal Medicine; Visit Provider Emergency Medicine
DX: M54.9 Dorsalgia, unspecified (principal); M06.9 Rheumatoid arthritis, unspecified; N20.0 Calculus of kidney; F41.9 Anxiety disorder, unspecified; Z87.442 Personal history of urinary calculi; F12.90 Cannabis use, unspecified, uncomplicated; F17.210 Nicotine dependence, cigarettes, uncomplicated
CPT/HCPCS: 74177; 80053; 81001; 83690; 85025; 96361; 96374; 96375; 99283; Q9967; A4216; J2405